=== PATIENT | female | born 1940 | race Caucasian/White ===

== ENCOUNTER 2017-07-19 23:26 | Emergency (ER) | payer MEDICARE, MEDICAID ==
[~2017-07-19] VITALS: Ht 160 cm; Wt 67.6 kg
[2017-07-19 23:26] VITALS: BP 196/84
[~2017-07-19 23:26] MED LIST: AC325T PO; ACHD5005 PO; AMIO400T5 PO; AMLO5TAB2 PO; ASP325T PO; ASP81TEC PO; ATEN100T88 PO; ATN50T; ATOR40TA70 PO; AZIT-21 PO; BENZ200C25 PO; CEFD300C3 PO; CLPD75T PO; FURO40TA4 PO; HCT25T PO; HYDR-3062 PO; LOVA40TA2 PO; LVST20T; METO100T2 PO; METO1TAB12 PO; NTR.4SL SL; PNT40TEC PO; POTA10TA36 PO; POTA20TA15 PO; PRIM50TA26 PO; SCR1T1 PO
--- OUTSIDE RECORDS SUMMARY | 2017-07-19 23:34 | XMS REPORT | Continuity of Care Document ---
Author Author [facility] Address Unknown Phone Unavailable Allergies Active Description Code Type Severity Reaction Onset Reported/Identified Relationship to Patient Clinical Status Yes No Known Drug Allergies [id number] Drug Allergy Unknown N/ A 07/01/2008 Yes Flulaval Drug Allergy N/A N/A 05/25/2014 Medications Problems Date Dx Coded Attending Type Code Diagnosis Diagnosed By CHELI THORNTON, GUILLERMO Neff Ot S42.209D CHELI THORNTON, GUILLERMO Neff Ot W19.XXXD CHELI THORNTON, GUILLERMO Neff Ot Y99.8 06/18/2008 414.01 CAD 06/18/2008 528.9 MOUTH PAIN 06/18/2008 RADHA GUERRA APRN R 414.01 CAD 06/18/2008 RADHA GUERRA APRN R 528.9 MOUTH PAIN 06/18/2008 LATHAM DO, MUNIRA K 414.01 CAD 06/18/2008 LATHAM DO, MUNIRA K 528.9 MOUTH PAIN 06/18/2008 EUGENIO TELLO APRNA S 414.01 CAD 06/18/2008 EUGENIO TELLO APRNA S 528.9 MOUTH PAIN 06/18/2008 LATHAM DO, MUNIRA K 414.01 CAD 06/18/2008 LATHAM DO, MUNRIA K 528.9 MOUTH PAIN 02/22/2010 729.5 PAIN IN LIMB 02/22/2010 RADHA GUERRA APRN R 729.5 PAIN IN LIMB 02/22/2010 LATHAM DO, MUNIRA K 729.5 PAIN IN LIMB 02/22/2010 STACEY TELLO APRN S 729.5 PAIN IN LIMB 02/22/2010 LATHAM DO, MUNIRA K 729.5 PAIN IN LIMB 04/05/2010 388.70 OTALGIA, UNSPECIFIED 04/05/2010 401.9 UNSPECIFIED ESSENTIAL HYPERTENSION 04/05/2010 RADHA GUERRA APRN R 388.70 OTALGIA, UNSPECIFIED 04/05/2010 RADHA GUERRA APRN R 401.9 UNSPECIFIED ESSENTIAL HYPERTENSION 04/05/2010 LATHAM DO, MUNIRA K 388.70 OTALGIA, UNSPECIFIED 04/05/2010 LATHAM DO, MUNIRA K 401.9 UNSPECIFIED ESSENTIAL HYPERTENSION 04/05/2010 ELISHA MCKEONBienvenido STACEY S 388.70 OTALGIA, UNSPECIFIED 04/05/2010 ELISHA TOP EDGE BEVELER STACEY S 401.9 UNSPECIFIED ESSENTIAL HYPERTENSION 04/05/2010 LATHAM DO, MUNIRA K 388.70 OTALGIA, UNSPECIFIED 04/05/2010 LATHAM DO, MUNIRA K 401.9 UNSPECIFIED ESSENTIAL HYPERTENSION 04/11/2010 780.4 DIZZINESS AND VERTIGO 04/11/2010 RADHA GUERRA APRN R 780.4 DIZZINESS AND VERTIGO 04/11/2010 LATHAM DO, MUNIRA K 780.4 DIZZINESS AND VERTIGO 04/11/2010 ELISHA TOP EDGE BEVELER, STACEY S 780.4 DIZZINESS AND VERTIGO 04/11/2010 LATHAM DO, MUNIRA K 780.4 DIZZINESS AND VERTIGO 11/12/2010 Ot 729.5 11/12/2010 Ot 789.09 04/02/2014 ISAI THORNTON [facility], ALI FACP CCDS Ot 272.4 04/02/2014 ISAI THORNTON [facility], ALI FACP CCDS Ot 403.90 04/02/2014 ISAI THORNTON [facility], ALI FACP CCDS Ot 414.01 04/02/2014 ISAI THORNTON [facility], ALI FACP CCDS Ot 414.4 04/02/2014 ISAI THORNTON [facility], ALI FACP CCDS Ot 440.20 04/02/2014 ISAI THORNTON [facility], ALI FACP CCDS Ot 585.2 04/02/2014 ISAI THORNTON [facility], ALI FACP CCDS Ot 786.09 04/02/2014 ISAI THORNTON FAC, ALI FACP CCDS Ot 786.59 04/02/2014 ISAI THORNTON FAC, ALI FACP CCDS Ot V45.82 04/02/2014 ISAI ALEGRIAC, ALI FACP CCDS Ot V58.63 04/02/2014 ISAI ALEGRIAC, ALI FACP CCDS Ot V58.69 05/18/2014 RADHA GUERRA APRN R 782.3 EDEMA 05/18/2014 GUERRA TOP EDGE BEVELER, RADHA R 786.2 COUGH 05/18/2014 LATHAM DO, MUNIRA K 782.3 EDEMA 05/18/2014 LATHAM DO, MUNIRA K 786.2 COUGH 05/18/2014 ELISHA TOP EDGE BEVELER, STACEY S 782.3 EDEMA 05/18/2014 ELISHA TOP EDGE BEVELER, STACEY S 786.2 COUGH 05/18/2014 LATHAM DO, MUNIRA K 782.3 EDEMA 05/18/2014 LATHAM DO, MUNIRA K 786.2 COUGH 05/25/2014 LATHAM DO, MUNIRA K 719.46 PAIN KNEE 05/25/2014 LATHAM DO, MUNIRA K 781.0 ABNORMAL INVOLUNTARY MOVEMENTS 05/25/2014 LATHAM DO, MUNIRA K 787.20 DYSPHAGIA UNSPECIFIED 05/25/2014 LATHAM DO, MUNIRA K V70.0 EXAM - ROUTINE H&P 05/25/2014 ELISHA TOP EDGE BEVELER STACEY S 719.46 PAIN KNEE 05/25/2014 ELISHA MCKEONN STACEY S 781.0 ABNORMAL INVOLUNTARY MOVEMENTS 05/25/2014 ELISHA TOP EDGE BEVELER, STACEY S 787.20 DYSPHAGIA UNSPECIFIED 05/25/2014 ELISHA TOP EDGE BEVELER, STACEY S V70.0 EXAM - ROUTINE H&P 05/25/2014 LATHAM DO, MUNIRA K 719.46 PAIN KNEE 05/25/2014 LATHAM DO, MUNIRA K 781.0 ABNORMAL INVOLUNTARY MOVEMENTS 05/25/2014 LATHAM DO, MUNIRA K 787.20 DYSPHAGIA UNSPECIFIED 05/25/2014 LATHAM DO, MUNIRA K V70.0 EXAM - ROUTINE H&P 07/08/2014 SHAWN THORNTON, RANDA Ot 530.11 07/08/2014 SHAWN THORNTON, RANDA Ot 535.50 07/08/2014 SHAWN THORNTON, RANDA Ot 553.3 07/20/2014 LATHAM DO, MUNIRA K 041.86 H. PYLORI INFECTION 07/20/2014 LATHAM DO, MUNIRA K 530.85 WHITE'S ESOPHAGUS 07/20/2014 ELISHA MART STACEY S 041.86 H. PYLORI INFECTION 07/20/2014 ELISHA MART STACEY S 530.85 WHITE'S ESOPHAGUS 07/20/2014 LATHAM DO, MUNIRA K 041.86 H. PYLORI INFECTION 07/20/2014 MUNIRA LATHAM DO 530.85 WHITE'S ESOPHAGUS 09/18/2014 MANINDER LEYVA MD Ot 465.9 09/18/2014 MANINDER LEYVA MD Ot 729.81 09/18/2014 MANINDER LEYVA MD Ot 786.2 09/18/2014 MANINDER LEYVA MD Ot V58.69 09/23/2014 NOA COATES MUNIRA Godinez 465.9 UPPER RESPIRATORY INFECTION 11/12/2014 ISAI THORNTON FACC, ALI FACP CCDS Ot 414.00 11/12/2014 ISAI THORNTON FACC, ALI FACP CCDS Ot 428.31 11/12/2014 ISAI THORNTON FACC, ALI FACP CCDS Ot 443.9 11/12/2014 ISAI THORNTON FACC, ALI FACP CCDS Ot 458.9 11/12/2014 ISAI THORNTON FACC, ALI FACP CCDS Ot 585.9 11/12/2014 ISAI THORTNON FACC, ALI FACP CCDS Ot 781.0 12/02/2014 ISAI THORNTON FACC, ALI FACP CCDS Ot 414.00 12/02/2014 ISAI THORNTON FACC, ALI FACP CCDS Ot 428.31 12/02/2014 ISAI THORNTON FACC, ALI FACP CCDS Ot 443.9 12/02/2014 ISAI THORNTON FACC, ALI FACP CCDS Ot 458.9 12/02/2014 ISAI THORNTON FACC, ALI FACP CCDS Ot 585.9 12/02/2014 ISAI ALEGRIAC, ALI FACP CCDS Ot 781.0 12/17/2014 Ot 272.4 12/17/2014 Ot 401.9 12/17/2014 Ot 414.00 12/17/2014 Ot 490 12/17/2014 Ot 786.05 12/17/2014 Ot V45.81 12/17/2014 Ot V58.69 12/21/2014 ISAI THORNTON FACC, ALI FACP CCDS Ot 414.00 12/21/2014 ISAI THORNTON FACC, ALI FACP CCDS Ot 428.31 12/21/2014 ISAI THORNTON FACC, ALI FACP CCDS Ot 443.9 12/21/2014 ISAI THORNTON FACC, ALI FACP CCDS Ot 458.9 12/21/2014 ISAI THORNTON FACC, ALI FACP CCDS Ot 585.9 12/21/2014 ISAI THORNTON FACC, ALI FACP CCDS Ot 781.0 08/09/2015 Ot 272.4 08/09/2015 Ot 414.01 08/09/2015 Ot V58.69 08/09/2015 Ot 272.4 08/09/2015 Ot 401.9 08/09/2015 Ot 414.01 08/09/2015 Ot V58.69 08/09/2015 Ot 272.4 08/09/2015 Ot 414.00 08/09/2015 Ot V58.69 08/09/2015 Ot 272.4 08/09/2015 Ot 414.00 08/09/2015 Ot V58.69 08/09/2015 Ot 276.8 08/09/2015 Ot 401.9 08/09/2015 Ot V58.69 08/09/2015 Ot 414.00 08/09/2015 Ot 786.09 08/09/2015 Ot 786.50 08/09/2015 Ot 272.4 08/09/2015 Ot 414.00 08/09/2015 Ot V58.69 08/09/2015 Ot 276.8 08/09/2015 Ot 401.9 08/09/2015 Ot 276.8 08/09/2015 Ot 401.9 08/09/2015 Ot V58.69 08/09/2015 Ot 272.4 08/09/2015 Ot 401.9 08/09/2015 Ot 414.01 08/09/2015 Ot V58.69 08/09/2015 Ot 401.9 08/09/2015 Ot 414.00 08/09/2015 Ot 786.50 08/09/2015 Ot 272.4 08/09/2015 Ot 414.00 08/09/2015 MAXIME LOZADA L HOCKEY SCOUT Ot 272.4 08/09/2015 BAIMA MAXIME L HOCKEY SCOUT Ot 414.00 08/09/2015 BAIMA MAXIME L HOCKEY SCOUT Ot 440.1 08/09/2015 BAIMA MAXIME L HOCKEY SCOUT Ot 443.9 08/09/2015 ISAI THORNTON FACC, ALI FACP CCDS Ot V72.63 08/09/2015 ISAI THORNTON FACC, ALI FACP CCDS Ot V72.81 08/09/2015 ISAI THORNTON FACC, ALI FACP CCDS Ot V72.84 08/09/2015 BYRONROSALINA NUNEZ APRN Ot 276.8 08/09/2015 CHETAN THORNTON, NAN Ot V45.81 08/09/2015 CHETAN THORNTON, NAN Ot V58.73 08/09/2015 ISAI THORNTON FACC, ALI FACP CCDS Ot 272.4 08/09/2015 ISAI MD FACC, ALI FACP CCDS Ot 410.00 08/09/2015 ISAI THORNTON FACC, ALI FACP CCDS Ot 428.0 08/09/2015 ISAI MD FACC, ALI FACP CCDS Ot 428.30 08/09/2015 ISAI MD FACC, ALI FACP CCDS Ot 443.9 08/09/2015 ISAI THORNTON FACC, ALI FACP CCDS Ot 787.20 08/09/2015 ISAI THORNTON FACC, ALI FACP CCDS Ot 793.4 08/09/2015 RANDA CORDON MD Ot V72.84 08/09/2015 ISAI THORNTON FACC, ALI FACP CCDS Ot 140.0 08/09/2015 ISAI THORNTON FACC, ALI FACP CCDS Ot 272.4 08/09/2015 ISAI THORNTON FACC, ALI FACP CCDS Ot 283.0 08/09/2015 ISAI THORNTON FACC, ALI FACP CCDS Ot 403.90 08/09/2015 ISAI THORNTON FACC, ALI FACP CCDS Ot 428.0 08/09/2015 ISAI THORNTON FACC, ALI FACP CCDS Ot 443.9 08/09/2015 ISAI THORNTON FACC, ALI FACP CCDS Ot 585.9 08/09/2015 ISAI THORNTON FACC, ALI FACP CCDS Ot 781.0 08/09/2015 ISAI THORNTON FACC, ALI FACP CCDS Ot 414.00 08/09/2015 ISAI THORNTON FACC, ALI FACP CCDS Ot 428.31 08/09/2015 ISAI THORNTON FACC, ALI FACP CCDS Ot 443.9 08/09/2015 ISAI MD FACC, ALI FACP CCDS Ot 458.9 08/09/2015 ISAI THORNTON FACC, ALI FACP CCDS Ot 585.9 08/09/2015 ISAI THORNTON FACC, ALI FACP CCDS Ot 781.0 08/10/2015 Ot 272.4 08/10/2015 Ot 414.01 08/10/2015 Ot V58.69 08/10/2015 Ot 272.4 08/10/2015 Ot 401.9 08/10/2015 Ot 414.01 08/10/2015 Ot V58.69 08/10/2015 Ot 272.4 08/10/2015 Ot 414.00 08/10/2015 Ot V58.69 08/10/2015 Ot 272.4 08/10/2015 Ot 414.00 08/10/2015 Ot V58.69 08/10/2015 Ot 276.8 08/10/2015 Ot 401.9 08/10/2015 Ot V58.69 08/10/2015 Ot 414.00 08/10/2015 Ot 786.09 08/10/2015 Ot 786.50 08/10/2015 Ot 272.4 08/10/2015 Ot 414.00 08/10/2015 Ot V58.69 08/10/2015 Ot 276.8 08/10/2015 Ot 401.9 08/10/2015 Ot 276.8 08/10/2015 Ot 401.9 08/10/2015 Ot V58.69 08/10/2015 Ot 272.4 08/10/2015 Ot 401.9 08/10/2015 Ot 414.01 08/10/2015 Ot V58.69 08/10/2015 Ot 401.9 08/10/2015 Ot 414.00 08/10/2015 Ot 786.50 08/10/2015 Ot 272.4 08/10/2015 Ot 414.00 08/10/2015 BAIMA MAXIME L HOCKEY SCOUT Ot 272.4 08/10/2015 BAIMA, MAXIME L HOCKEY SCOUT Ot 414.00 08/10/2015 BAIMA, MAXIME L HOCKEY SCOUT Ot 440.1 08/10/2015 BAIMA, MAXIME L HOCKEY SCOUT Ot 443.9 08/10/2015 ISAI THORNTON FACC, ALI FACP CCDS Ot V72.63 08/10/2015 ISAI THORNTON FACC, ALI FACP CCDS Ot V72.81 08/10/2015 ISAI THORNTON FACC, ALI FACP CCDS Ot V72.84 08/10/2015 ROSALINA COLLINS APRN Ot 276.8 08/10/2015 NAN BENTON MD Ot V45.81 08/10/2015 CHETAN THORNTON, NAN Ot V58.73 08/10/2015 ISAI MD FACC, ALI FACP CCDS Ot 272.4 08/10/2015 ISAI MD FACC, ALI FACP CCDS Ot 410.00 08/10/2015 ISAI MD FACC, ALI FACP CCDS Ot 428.0 08/10/2015 ISAI FACC, ALI FACP CCDS Ot 428.30 08/10/2015 ISAI MD FACC, ALI FACP CCDS Ot 443.9 08/10/2015 ISAI FACC, ALI FACP CCDS Ot 787.20 08/10/2015 ISAI FAC, ALI FACP CCDS Ot 793.4 08/10/2015 SHAWN THORNTON, RANDA Ot V72.84 08/10/2015 ISAI MD FACC, ALI FACP CCDS Ot 140.0 08/10/2015 ISAI MD FACC, ALI FACP CCDS Ot 272.4 08/10/2015 ISAI MD FACC, ALI FACP CCDS Ot 283.0 08/10/2015 ISAI MD FACC, ALI FACP CCDS Ot 403.90 08/10/2015 ISAI MD FACC, ALI FACP CCDS Ot 428.0 08/10/2015 ISAI MD FACC, ALI FACP CCDS Ot 443.9 08/10/2015 ISAI MD FACC, ALI FACP CCDS Ot 585.9 08/10/2015 ISAI MD FACC, ALI FACP CCDS Ot 781.0 08/10/2015 ISAI MD FACC, ALI FACP CCDS Ot 414.00 08/10/2015 ISAI MD FACC, ALI FACP CCDS Ot 428.31 08/10/2015 ISAI MD FACC, ALI FACP CCDS Ot 443.9 08/10/2015 ISAI MD FACC, ALI FACP CCDS Ot 458.9 08/10/2015 ISAI MD FACC, ALI FACP CCDS Ot 585.9 08/10/2015 ISAI MD FACC, ALI FACP CCDS Ot 781.0 09/01/2015 FREDY GATES DO Ot 812.02 09/01/2015 FREDY GATES DO Ot 959.3 09/01/2015 GELLENDER DO, FREDY Starkey Ot E000.8 09/01/2015 GELLENDER DO, FREDY Starkey Ot E849.0 09/01/2015 GELLENDER DO, FREDY Starkey Ot E888.9 09/08/2015 GELLENDER DO, FREDY Starkey Ot 812.02 09/08/2015 GELLENDER DO, FREDY Starkey Ot 959.3 09/08/2015 GELLENDER DO, FREDY Starkey Ot E000.8 09/08/2015 GELLENDER DO, FREDY Starkey Ot E849.0 09/08/2015 GELLENDER DO, FREDY Starkey Ot E888.9 09/14/2015 Ot 272.4 09/14/2015 Ot 414.01 09/14/2015 Ot V58.69 09/14/2015 Ot 272.4 09/14/2015 Ot 401.9 09/14/2015 Ot 414.01 09/14/2015 Ot V58.69 09/14/2015 Ot 272.4 09/14/2015 Ot 414.00 09/14/2015 Ot V58.69 09/14/2015 Ot 272.4 09/14/2015 Ot 414.00 09/14/2015 Ot V58.69 09/14/2015 Ot 276.8 09/14/2015 Ot 401.9 09/14/2015 Ot V58.69 09/14/2015 Ot 414.00 09/14/2015 Ot 786.09 09/14/2015 Ot 786.50 09/14/2015 Ot 272.4 09/14/2015 Ot 414.00 09/14/2015 Ot V58.69 09/14/2015 Ot 276.8 09/14/2015 Ot 401.9 09/14/2015 Ot 276.8 09/14/2015 Ot 401.9 09/14/2015 Ot V58.69 09/14/2015 Ot 272.4 09/14/2015 Ot 401.9 09/14/2015 Ot 414.01 09/14/2015 Ot V58.69 09/14/2015 Ot 401.9 09/14/2015 Ot 414.00 09/14/2015 Ot 786.50 09/14/2015 Ot 272.4 09/14/2015 Ot 414.00 09/14/2015 MAXIME LOZADA HOCKEY SCOUT Ot 272.4 09/14/2015 MAXIME LOZADA HOCKEY SCOUT Ot 414.00 09/14/2015 MAXIME LOZAAD HOCKEY SCOUT Ot 440.1 09/14/2015 MAXIME LOZADA HOCKEY SCOUT Ot 443.9 09/14/2015 ISAI THORNTON FACC, ALI FACP CCDS Ot V72.63 09/14/2015 ISAI THORNTON FACC, ALI FACP CCDS Ot V72.81 09/14/2015 ISAI THORNTON FACC, ALI FACP CCDS Ot V72.84 09/14/2015 ROSALINA COLLINS APRN Ot 276.8 09/14/2015 CHETAN THORNTON, NAN Ot V45.81 09/14/2015 CHETAN THORNTON, NAN Ot V58.73 09/14/2015 ISAI THORNTON FACC, ALI FACP CCDS Ot 272.4 09/14/2015 ISAI THORNTON FACC, ALI FACP CCDS Ot 410.00 09/14/2015 ISAI THORNTON FACC, ALI FACP CCDS Ot 428.0 09/14/2015 ISAI THORNTON FACC, ALI FACP CCDS Ot 428.30 09/14/2015 ISAI THORNTON FACC, ALI FACP CCDS Ot 443.9 09/14/2015 ISAI THORNTON FACC, ALI FACP CCDS Ot 787.20 09/14/2015 ISAI THORNTON FACC, ALI FACP CCDS Ot 793.4 09/14/2015 RANDA CORDON MD Ot V72.84 09/14/2015 ISAI THORNTON FACC, ALI FACP CCDS Ot 140.0 09/14/2015 ISAI THORNTON FACC, ALI FACP CCDS Ot 272.4 09/14/2015 ISAI THORNTON FACC, ALI FACP CCDS Ot 283.0 09/14/2015 ISAI THORNTON FACC, ALI FACP CCDS Ot 403.90 09/14/2015 ISAI THORNTON FACC, ALI FACP CCDS Ot 428.0 09/14/2015 ISAI THORNTON FACC, ALI FACP CCDS Ot 443.9 09/14/2015 ISAI THORNTON FACC, ALI FACP CCDS Ot 585.9 09/14/2015 ISAI THORNTON FACC, ALI FACP CCDS Ot 781.0 09/14/2015 ISAI THORNTON FACC, ALI FACP CCDS Ot 414.00 09/14/2015 ISAI THORNTON FACC, ALI FACP CCDS Ot 428.31 09/14/2015 ISAI THORNTON FAC, ALI FACP CCDS Ot 443.9 09/14/2015 ISAI THORNTON FAC, ALI FACP CCDS Ot 458.9 09/14/2015 ISAI THORNTON FAC, ALI FACP CCDS Ot 585.9 09/14/2015 ISAI THORNTON FAC, ALI FACP CCDS Ot 781.0 09/14/2015 GELLENDER DO, FREDY A Ot 812.02 09/14/2015 GELLENDER DO, FREDY A Ot 959.3 09/14/2015 GELLENDER DO, FREDY A Ot E000.8 09/14/2015 GELLENDER DO, FREDY A Ot E849.0 09/14/2015 GELLENDER DO, FREDY A Ot E888.9 09/14/2015 GELLENDER DO, FREDY A Ot 784.0 09/14/2015 GELLENDER DO, FREDY A Ot E000.8 09/14/2015 GELLENDER DO, FREDY A Ot E888.9 09/23/2015 CHELI THORNTON, GUILLERMO P Ot S42.209D 09/23/2015 CHELI THORNTON, GUILLERMO P Ot W19.XXXD 09/23/2015 CHELI THORNTON, GUILLERMO P Ot Y99.8 10/05/2015 CHELI THORNTON, GUILLERMO P Ot S42.209D 10/05/2015 CHELI THORNTON, GUILLERMO P Ot W19.XXXD 10/05/2015 CHELI THORNTON, GUILLERMO P Ot Y99.8 10/29/2015 PHYLLIS THORNTON, SREEKANTH T Ot F17.210 10/29/2015 PHYLLIS THORNTON, SREEKANTH T Ot R29.6 10/29/2015 PHYLLIS THORNTON, SREEKANTH T Ot S60.222A 10/29/2015 PHYLLIS THORNTON, SREEKANTH T Ot S70.912A 10/29/2015 PHYLLIS THORNTON, SREEKANTH T Ot S79.912A 10/29/2015 PHYLLIS THORNTON, SREEKANTH T Ot W01.0XXA 10/29/2015 PHYLLIS THORNTON, SREEKANTH T Ot Y92.019 10/29/2015 PHYLLIS THORNTON, SREEKANTH T Ot Y99.8 10/29/2015 PHYLLIS THORNTON, SREEKANTH T Ot Z79.02 10/29/2015 PHYLLIS THORNTON, SREEKANTH T Ot Z79.82 10/29/2015 PHYLLIS THORNTON, SREEKANTH T Ot Z79.899 02/21/2016 Ot 272.4 02/21/2016 Ot 414.01 02/21/2016 Ot V58.69 02/21/2016 Ot 272.4 02/21/2016 Ot 401.9 02/21/2016 Ot 414.01 02/21/2016 Ot V58.69 02/21/2016 Ot 272.4 02/21/2016 Ot 414.00 02/21/2016 Ot V58.69 02/21/2016 Ot 272.4 02/21/2016 Ot 414.00 02/21/2016 Ot V58.69 02/21/2016 Ot 276.8 02/21/2016 Ot 401.9 02/21/2016 Ot V58.69 02/21/2016 Ot 414.00 02/21/2016 Ot 786.09 02/21/2016 Ot 786.50 02/21/2016 Ot 272.4 02/21/2016 Ot 414.00 02/21/2016 Ot V58.69 02/21/2016 Ot 276.8 02/21/2016 Ot 401.9 02/21/2016 Ot 276.8 02/21/2016 Ot 401.9 02/21/2016 Ot V58.69 02/21/2016 Ot 272.4 02/21/2016 Ot 401.9 02/21/2016 Ot 414.01 02/21/2016 Ot V58.69 02/21/2016 Ot 401.9 02/21/2016 Ot 414.00 02/21/2016 Ot 786.50 02/21/2016 Ot 272.4 02/21/2016 Ot 414.00 02/21/2016 MAXIME LOZADA L HOCKEY SCOUT Ot 272.4 02/21/2016 MAXIME LOZADA L HOCKEY SCOUT Ot 414.00 02/21/2016 BAIPAMELA MCGILLHER L HOCKEY SCOUT Ot 440.1 02/21/2016 MAXIME LOZADA L HOCKEY SCOUT Ot 443.9 02/21/2016 ISAI THORNTON FACC, MYLES FACP CCDS Ot V72.63 02/21/2016 ISAI THORNTON FACWill, ALI FACP CCDS Ot V72.81 02/21/2016 ISAI MD FACC, ALI FACP CCDS Ot V72.84 02/21/2016 DENNIS ROSALINAUZIEL Godinez APRN Ot 276.8 02/21/2016 CHETAN THORNTON, NAN Ot V45.81 02/21/2016 CHETAN THORNTON, NAN Ot V58.73 02/21/2016 ISAI MD FACC, ALI FACP CCDS Ot 272.4 02/21/2016 ISAI MD FACC, ALI FACP CCDS Ot 410.00 02/21/2016 ISAI MD FACC, ALI FACP CCDS Ot 428.0 02/21/2016 ISAI MD FACC, ALI FACP CCDS Ot 428.30 02/21/2016 ISAI MD FACC, ALI FACP CCDS Ot 443.9 02/21/2016 ISAI MD FACC, ALI FACP CCDS Ot 787.20 02/21/2016 ISAI MD FACC, ALI FACP CCDS Ot 793.4 02/21/2016 RANDA CORDON MD Ot V72.84 02/21/2016 ISAI MD FACC, ALI FACP CCDS Ot 140.0 02/21/2016 ISAI MD FACC, ALI FACP CCDS Ot 272.4 02/21/2016 ISAI THORNTON FACC, ALI FACP CCDS Ot 283.0 02/21/2016 ISAI MD FACC, ALI FACP CCDS Ot 403.90 02/21/2016 ISAI MD FACC, ALI FACP CCDS Ot 428.0 02/21/2016 ISAI THORNTON FACC, ALI FACP CCDS Ot 443.9 02/21/2016 ISAI MD FACC, ALI FACP CCDS Ot 585.9 02/21/2016 ISAI MD FACC, ALI FACP CCDS Ot 781.0 02/21/2016 ISAI MD FACC, ALI FACP CCDS Ot 414.00 02/21/2016 ISAI MD FACC, ALI FACP CCDS Ot 428.31 02/21/2016 ISAI MD FACC, ALI FACP CCDS Ot 443.9 02/21/2016 ISAI MD FACC, ALI FACP CCDS Ot 458.9 02/21/2016 ISAI MD FACC, ALI FACP CCDS Ot 585.9 02/21/2016 ISAI THORNTON [facility] CCDS Ot 781.0 02/21/2016 GELLENDER DO, FREDY Starkey Ot 812.02 02/21/2016 GELLENDER DO, FREDY Starkey Ot 959.3 02/21/2016 GELLENDER DO, FREDY Starkey Ot E000.8 02/21/2016 GELLENDER DO, FREDY Starkey Ot E849.0 02/21/2016 GELLENDER DO, FREDY Starkey Ot E888.9 02/21/2016 GELLENDER DO, FREDY Starkey Ot 784.0 02/21/2016 GELLENDER DO, FREDY Starkey Ot E000.8 02/21/2016 GELLENDER DO, FREDY Starkey Ot E888.9 02/22/2016 BAIMA, MAXIME L HOCKEY SCOUT Ot E78.5 02/22/2016 BAIMA, MAXIME L HOCKEY SCOUT Ot I10 02/22/2016 BAIMA, MAXIME L HOCKEY SCOUT Ot I25.10 02/22/2016 BAIMA, MAXIME L HOCKEY SCOUT Ot I50.31 03/15/2016 BAIMA, MAXIME L HOCKEY SCOUT Ot E78.5 HYPERLIPIDEMIA, UNSPECIFIED 03/15/2016 BAIMA, MAXIME L HOCKEY SCOUT Ot I10 ESSENTIAL (PRIMARY) HYPERTENSION 03/15/2016 BAIMA, MAXIME L HOCKEY SCOUT Ot I25.10 ATHSCL HEART DISEASE [place] CORONARY 03/15/2016 BAIMA, MAXIME L HOCKEY SCOUT Ot I50.31 ACUTE DIASTOLIC (CONGESTIVE) HEART FAILU 03/16/2016 BAIMA, MAXIME L HOCKEY SCOUT Ot E78.5 HYPERLIPIDEMIA, UNSPECIFIED 03/16/2016 BAIMA, MAXIME L HOCKEY SCOUT Ot I10 ESSENTIAL (PRIMARY) HYPERTENSION 03/16/2016 BAIMA, MAXIME L HOCKEY SCOUT Ot I25.10 ATHSCL HEART DISEASE OF [place] CORONARY 03/16/2016 BAIMA, MAXIME L HOCKEY SCOUT Ot I50.31 ACUTE DIASTOLIC (CONGESTIVE) HEART FAILU 03/30/2016 BAIMA, MAXIME L HOCKEY SCOUT Ot E78.5 HYPERLIPIDEMIA, UNSPECIFIED 03/30/2016 BAIMA, MAXIME L HOCKEY SCOUT Ot I10 ESSENTIAL (PRIMARY) HYPERTENSION 03/30/2016 BAIMA, MAXIME L HOCKEY SCOUT Ot I25.10 ATHSCL HEART DISEASE [place] CORONARY 03/30/2016 BAIMA, MAXIME L HOCKEY SCOUT Ot I50.31 ACUTE DIASTOLIC (CONGESTIVE) HEART FAILU 03/30/2016 MAXIME LOZADA HOCKEY SCOUT Ot E78.5 HYPERLIPIDEMIA, UNSPECIFIED 03/30/2016 MAXIME LOZADA HOCKEY SCOUT Ot I10 ESSENTIAL (PRIMARY) HYPERTENSION 03/30/2016 MAXIME LOZADA HOCKEY SCOUT Ot I25.10 ATHSCL HEART DISEASE [place] CORONARY 03/30/2016 MAXIME LOZADAP Ot I50.31 ACUTE DIASTOLIC (CONGESTIVE) HEART FAILU Procedures Code Description [place] [address] ROUTINE VENIPUNCTURE 05/18/2014 General S Praneeth Cordon 85502 XRAY CHEST 2 VIEW 05/18/2014 93068 BNP 05/18/2014 74978 OXIMETRY 2013 Results Encounters ACCT No. Visit Date/Time Discharge Status Pt. Type Provider Facility Loc./Unit Complaint [id number] 09/23/2014 10:55:00 09/23/2014 23: 59:59 CLS Outpatient MUNIRA LATHAM DO [id number] 08/17/2014 09:13:00 08/17/2014 23: 59:59 CLS Outpatient STACEY TELLO APRN [id number] 05/18/2014 12:54:00 05/18/2014 23: 59:59 CLS Outpatient MUNIRA LATHAM DO [id number] 05/18/2014 12:54:00 05/18/2014 23: 59:59 CLS Outpatient RADHA GUERRA APRN [id number] 06/23/2010 10:09:00 06/23/2010 23: 59:59 CLS Outpatient [id number] 02/23/2016 13:23:00 2015 23:59:59 CLS Outpatient MAXIME LOZADA HOCKEY SCOUT [facility] CARD [id number] 02/21/2016 07:27:00 2015 23:59:59 CLS Outpatient MAXIME LOZADA HOCKEY SCOUT [facility] LAB [id number] 10/28/2015 21:51:00 2014 01:23:00 DIS Emergency PHYLLIS THORNTON, SREEKANTH Luu [facility] ER [id number] 09/30/2015 08:22:00 2014 09:51:00 DIS Outpatient GUILLERMO BOWER MD [facility] REHAB [id number] 08/10/2015 10:35:00 2014 23:59:59 CLS Outpatient FREDY GATES DO [facility] RAD [id number] 08/09/2015 11:48:00 2014 23:59:59 CLS Outpatient FREDY GATES DO [facility] RAD [id number] 11/10/2014 06:24:00 2013 23:59:59 CLS Outpatient ISAI THORNTON FACC, ALI FACP CCDS [facility] LAB [id number] 09/18/2014 09:45:00 2013 13:51:00 DIS Emergency MANINDER LEYVA MD [facility] ER [id number] 07/16/2014 06:15:00 2013 23:59:59 CLS Outpatient ISAI THORNTON FACWill, ALI FACP CCDS [facility] LAB [id number] 07/08/2014 08:14:00 2013 11:45:00 DIS Outpatient RANDA CORDON MD [facility] [id number] 07/01/2014 07:24:00 2013 23:59:59 CLS Outpatient RANDA CORDON MD [facility] PREOP [id number] 05/26/2014 09:47:00 2013 23:59:59 CLS Outpatient ISAI THORNTON FACWill, ALI FACP CCDS [facility] RAD [id number] 04/27/2014 14:15:00 2013 23:59:59 CLS Outpatient NAN BENTON MD [facility] [id number] 04/13/2014 10:09:00 2013 23:59:59 CLS Outpatient ROSALINA COLLINS APRN [facility] LAB [id number] 04/02/2014 07:48:00 2013 18:50:00 DIS Outpatient ISAI THORNTON FACWill, ALI FACP CCDS [facility] [id number] 04/01/2014 08:05:00 2013 23:59:59 CLS Outpatient MYLES ALEX MD, FACC, FACP CCDS [facility] PREOP [id number] 09/24/2013 05:51:00 2012 23:59:59 CLS Outpatient ARABELLANANO MAXIME Kieran IBARRA [facility] LAB [id number] 08/09/2015 11:47:00 Document Registration [id number] 08/09/2015 11:47:00 Document Registration [id number] 12/17/2014 03:54:00 Document Registration [id number] 09/18/2012 05:43:00 Document Registration [id number] 08/29/2012 07:15:00 Document Registration [id number] 01/04/2012 05:44:00 Document Registration [id number] 10/16/2011 06:12:00 Document Registration [id number] 10/04/2011 05:50:00 Document Registration [id number] 09/28/2011 09:42:00 Document Registration [id number] 09/27/2011 06:15:00 Document Registration [id number] 07/05/2011 06:15:00 Document Registration [id number] 03/16/2011 05:50:00 Document Registration [id number] 02/02/2011 07:36:00 Document Registration [id number] 11/12/2010 14:00:00 Document Registration [id number] 11/08/2010 05:57:00 Document Registration
--- NOTE | 2017-07-19 23:41 | ED Fall/Injury ---
General Stated Complaint: FALL,RT HIP PAIN Source: patient, EMS Exam Limitations: no limitations History of Present Illness Time seen by provider: 23:34 Initial Comments Patient has ER by EMS with a chief complaint of a fall while trying to get off the toilet going to the bathroom. She says she's started getting a little dizzy. This happens before. She said she sat down and she fell and landed her right hip on the wheel of her walker. EMS reports the walkers we'll was quite bent and the patient had some deformity to her right hip. She is having quite a bit of pain and required 50 g of fentanyl en route. Patient's blood pressure was elevated 180s over 90s. Patient reports she also has Parkinson's and is on Plavix and aspirin. She did not hit her head nor did she lose consciousness. Allergies and Home Medications Allergies Coded Allergies: No Known Drug Allergies (Verified , 07/01/08) Home Medications Amiodarone Hcl 400 Mg Tablet, 400 MG PO DAILY, (Reported) Aspirin 81 Mg Tabec, 81 MG PO DAILY, #30 Prescribed by: SKYE JENKINS on 04/02/14 1811 Atorvastatin Calcium 40 Mg Tablet, 40 MG PO DAILY, (Reported) Azithromycin 250 Mg Tab, 2 TAB PO DAILY, #10 Prescribed by: LEDA RICKS on 12/17/14 0501 Benzonatate 200 Mg Capsule, 1 EACH PO TID PRN for COUGH, #30 Prescribed by: MANINDER LEYVA on 09/18/14 1339 Benzonatate 200 Mg Capsule, 1 EACH PO TID PRN for COUGH, #30 Prescribed by: LEDA RICKS on 12/17/14 0501 Cefdinir 300 Mg Capsule, 1 EACH PO BID, #20 Prescribed by: LEDA RICKS on 12/17/14 0501 Clopidogrel 75 Mg Tablet, 75 MG PO DAILY, (Reported) Furosemide 40 Mg Tablet, 40 MG PO DAILY, #90 (Reported) Hctz/Metoprolol 1 Each Tablet, 1 EACH PO DAILY, (Reported) Nitroglycerin 0.4 Mg Subl, 0.4 MG SL PRN, (Reported) Pantoprazole Sodium 40 Mg Tablet.dr, 1 TAB PO DAILY, #90 Ref 5 Prescribed by: RANDA ESCOBAR on 07/08/14 1041 Potassium Chloride 10 Meq Tab.prt.sr, 10 MEQ PO DAILY, #30 (Reported) Primidone 50 Mg Tablet, 50 MG PO HS, (Reported) Constitutional: No chills, No diaphoresis Eyes: Denies Blurred Vision, Denies Pain, Denies Photophobia Ears, Nose, Mouth, Throat: denies ear pain, denies ear discharge Respiratory: No cough, No short of breath Cardiovascular: No chest pain, No palpitations Gastrointestinal: No abdominal pain, No constipation, No diarrhea, No nausea, No vomiting Genitourinary: No discharge, No dysuria Musculoskeletal: No back pain, joint pain (right hip) Skin: No pruritus, No rash Psychiatric/Neurological: Denies Headache, Denies Numbness, Denies Paresthesia Past Rsgorkv-Cpasox-Spwixa Hx Patient Social History Alcohol Use: Denies Use Recreational Drug Use: No Smoking Status: Smoker Current Status [facility]N Immunizations Up To Date Tetanus Booster (TDap): More than 5yrs Date of Pneumonia Vaccine: April 07, 2014 Seasonal Allergies Seasonal Allergies: Yes Surgeries Surgeries: CABG, Coronary Stent, Hysterectomy, Renal Cardiovascular Cardiac Disorders: Coronary Artery Disease, Heart Attack, High Cholesterol, Hypertension Reproductive System Hx Reproductive Disorders: No Sexually Transmitted Disease: No HIV/AIDS: No COMMUNICATION SPEC History: Hysterectomy Musculoskeletal Musculoskeletal Disorders: Arthritis Psychosocial Behavioral Health Disorders: Depression Physical Exam Vital Signs Vital Sign - Last 12Hours 07/19/17 23:26 Temp 96.9 Pulse 66 Resp 20 B/P (MAP) 196/84 Pulse Ox 94 O2 Delivery Room Air Capillary Refill : General Appearance: WD/WN, mild distress HEENT: PERRL/EOMI, pharynx normal Neck: non-tender, normal inspection Cardiovascular: normal peripheral pulses, regular rate, rhythm Respiratory: chest non-tender, lungs clear, normal breath sounds Peripheral Pulses: 2+ Radial Pulses (R), 2+ Radial Pulses (L) Gastrointestinal: normal bowel sounds, non tender, soft Back: normal inspection, no vertebral tenderness Extremities: no pedal edema, no calf tenderness, normal capillary refill, swelling (right hip), other (mild tenderness right hip and right anterior knee) Neurologic/Psychiatric: alert, normal mood/affect, oriented x 3 Skin: normal color, warm/dry Melonie Coma Score Best Eye Response: (4) Open Spontaneously Best Verbal Response: (5) Oriented Best Motor Response: (6) Obeys Commands Melonie Total: 15 Progress/Results/Core Measures Results/Orders Lab Results Laboratory Tests Test 07/19/17 23:00 07/20/17 01:38 Range/Units White Blood Count 7.1 4.3-11.0 10^3/uL Red Blood Count 4.13 L 4.35-5.85 10^6/uL Hemoglobin 10.7 L 11.5-16.0 G/DL Hematocrit 35 35-52 % Mean Corpuscular Volume 85 80-99 FL Mean Corpuscular Hemoglobin 26 25-34 PG Mean Corpuscular Hemoglobin Concent 31 L 32-36 G/DL Red Cell Distribution Width 14.3 10.0-14.5 % Platelet Count 244 130-400 10^3/uL Mean Platelet Volume 11.3 H 7.4-10.4 FL Neutrophils (%) (Auto) 62 42-75 % Lymphocytes (%) (Auto) 22 12-44 % Monocytes (%) (Auto) 8 0-12 % Eosinophils (%) (Auto) 7 0-10 % Basophils (%) (Auto) 1 0-10 % Neutrophils # (Auto) 4.4 1.8-7.8 X 10^3 Lymphocytes # (Auto) 1.6 1.0-4.0 X 10^3 Monocytes # (Auto) 0.6 0.0-1.0 X 10^3 Eosinophils # (Auto) 0.5 H 0.0-0.3 10^3/uL Basophils # (Auto) 0.1 0.0-0.1 10^3/uL Sodium Level 145 135-145 MMOL/L Potassium Level 3.7 3.6-5.0 MMOL/L Chloride Level 109 H 98-107 MMOL/L Carbon Dioxide Level 24 21-32 MMOL/L Anion Gap 12 5-14 MMOL/L Blood Urea Nitrogen 24 H 7-18 MG/DL Creatinine 1.28 0.60-1.30 MG/DL Estimat Glomerular Filtration Rate 41 BUN/Creatinine Ratio 19 Glucose Level 125 H 70-105 MG/DL Calcium Level 8.8 8.5-10.1 MG/DL Magnesium Level 2.0 1.8-2.4 MG/DL Total Bilirubin 1.1 H 0.1-1.0 MG/DL Aspartate Amino Transf (AST/SGOT) 20 5-34 U/L Alanine Aminotransferase (ALT/SGPT) < 6 0-55 U/L Alkaline Phosphatase 88 40-136 U/L Total Protein 6.5 6.4-8.2 GM/DL Albumin 3.5 3.2-4.5 GM/DL Urine Color YELLOW Urine Clarity CLEAR Urine pH 6 5-9 Urine Specific [place] 1.020 1.016-1.022 Urine Protein 3+ H NEGATIVE Urine Glucose (UA) NEGATIVE NEGATIVE Urine Ketones 1+ H NEGATIVE Urine Nitrite NEGATIVE NEGATIVE Urine Bilirubin NEGATIVE NEGATIVE Urine Urobilinogen NORMAL NORMAL MG/DL Urine Leukocyte Esterase NEGATIVE NEGATIVE Urine RBC (Auto) NEGATIVE NEGATIVE Urine RBC NONE /HPF Urine WBC NONE /HPF Urine Squamous Epithelial Cells 5-10 /HPF Urine Crystals NONE /LPF Urine Bacteria NEGATIVE /HPF Urine Casts NONE /LPF Urine Mucus NEGATIVE /LPF Urine Culture Indicated NO My Orders Orders - MURALI JORDAN Cbc With Automated Diff (07/19/17 23:41) Comprehensive Metabolic Panel (07/19/17 23:41) Magnesium (07/19/17 23:41) Ua Culture If Indicated (07/19/17 23:41) Knee, Right, 3 Views (07/20/17 00:02) Hip, Right, 2 Views (07/20/17 00:02) Ondansetron Injection (Zofran Injectio (07/20/17 02:00) Medications Given in ED Current Medications Medications Dose Ordered Sig/Nabila Route Start Time Stop Time Status Last Admin Dose Admin Ondansetron HCl 4 mg ONCE ONCE IVP 07/20/17 02:00 07/20/17 02:01 DC 07/20/17 02:02 4 MG Vital Signs/I&O Vital Sign - Last 12Hours 07/19/17 23:26 Temp 96.9 Pulse 66 Resp 20 B/P (MAP) 196/84 Pulse Ox 94 O2 Delivery Room Air Diagnostic Imaging Diagonstic Imaging: Xray Plain Films/CT/US/NM/MRI: knee (right) Comments Chronic degenerative changes. No acute osseous abnormality. Reviewed: Reviewed by Me Diagonstic Imaging: Xray Plain Films/CT/US/NM/MRI: hip (right) Comments Poorly penetrated second view. Chronic degenerative changes. No overt osseous abnormality. Soft tissue effusion/edema surrounding the right hip. Reviewed: Reviewed by Me Departure Impression Impression: Primary Impression: Fall on same level Qualified Codes: W18.30XA - Fall on same level, unspecified, initial encounter Additional Impression: Contusion of right hip Qualified Codes: S70.01XA - Contusion of right hip, initial encounter Disposition: HOME, SELF-CARE Condition: Stable Departure-Patient Inst. Decision time for Depature: 02:11 Referrals: FREDY GATES DO (PCP/Family) Primary Care Physician Patient Instructions: Preventing Falls in the Older Adult Add. Discharge Instructions: Go home and get some rest and follow-up with her primary care physician as necessary. If you feel that your having troubles you may also talk your primary care physician about a stent and rehabilitation inpatient or outpatient for some physical therapy. Copy Copies To 1: FREDY GATES TITUS J Jul 19, 2017 23:41
[2017-07-19 23:47] LABS: BASOPHILS # (AUTO) 0.1 10^3/uL (0.0-0.1); BASOPHILS % (AUTO) 1 % (0-10); EOSINOPHILS # (AUTO) 0.5 10^3/uL (0.0-0.3); EOSINOPHILS % (AUTO) 7 % (0-10); LYMPHOCYTES # (AUTO) 1.6 X 10^3 (1.0-4.0); LYMPHOCYTES % (AUTO) 22 % (12-44); MEAN CORPUSCULAR HEMOGLOBIN 26 PG (25-34); MEAN CORPUSCULAR HGB CONC 31 G/DL (32-36); MEAN CORPUSCULAR VOLUME 85 FL (80-99); MEAN PLATELET VOLUME 11.3 FL (7.4-10.4); MONOCYTES # (AUTO) 0.6 X 10^3 (0.0-1.0); MONOCYTES % (AUTO) 8 % (0-12); NEUTROPHILS # (AUTO) 4.4 X 10^3 (1.8-7.8); NEUTROPHILS % (AUTO) 62 % (42-75); PLATELET COUNT 244 10^3/uL (130-400); RED BLOOD COUNT 4.13 10^6/uL (4.35-5.85); RED CELL DISTRIBUTION WIDTH 14.3 % (10.0-14.5); WHITE BLOOD COUNT 7.1 10^3/uL (4.3-11.0)
[2017-07-20 00:03] LABS: ANION GAP 12 MMOL/L (5-14); BLOOD UREA NITROGEN 24 MG/DL (7-18); BUN/CREATININE RATIO 19; CALCIUM 8.8 MG/DL (8.5-10.1); CARBON DIOXIDE 24 MMOL/L (21-32); CHLORIDE 109 MMOL/L (98-107); CREATININE SERUM 1.28 MG/DL (0.60-1.30); GFR ESTIMATED 41; GLUCOSE 125 MG/DL (70-105); POTASSIUM 3.7 MMOL/L (3.6-5.0); SODIUM 145 MMOL/L (135-145)
[2017-07-20 00:04] LABS: ALANINE AMINOTRANSFERASE < 6 U/L (0-55); ALBUMIN 3.5 GM/DL (3.2-4.5); ASPARTATE AMINO TRANSFERASE 20 U/L (5-34); BILIRUBIN,TOTAL 1.1 MG/DL (0.1-1.0); TOTAL PROTEIN 6.5 GM/DL (6.4-8.2)
[2017-07-20 01:46] LABS: BILIRUBIN,URINE NEGATIVE (NEGATIVE); KETONES,URINE 1+ (NEGATIVE); LEUKOCYTE ESTERASE ,URINE NEGATIVE (NEGATIVE); NITRITE,URINE NEGATIVE (NEGATIVE); PH,URINE 6 (5-9); PROTEIN,URINE 3+ (NEGATIVE); UROBILINOGEN,URINE NORMAL (NORMAL)
[2017-07-20] MEDS ORDERED: ONDANSETRON 4 MG/2 ML (SDV) Z0FRAN IVP ONE (02:00)
--- NOTE | 2017-07-20 08:00 | Diagnostic Imaging Report ---
INDICATION: Fall, right hip pain. EXAMINATION: Right hip 07/20/2017. FINDINGS: 2 views of the hip. There is some narrowing and spurring in the right hip joint. The crosstable lateral view is nearly nondiagnostic but no obvious dislocations are seen. IMPRESSION: 1. Degenerative findings with no acute process appreciated, however, examination is limited and if patient has continued pain or cannot bear weight, further imaging would be recommended. Dictated by: Dictated on workstation # [id number]
--- NOTE | 2017-07-20 08:00 | Diagnostic Imaging Report ---
INDICATION: Fell, lateral pain EXAMINATION: Right knee dated 07/20/2017 FINDINGS: Three views of the knee demonstrate postoperative change medially. There is narrowing in the medial joint compartment with associated spurring. Patellofemoral narrowing and spurring also noted. Small joint effusion seen. No acute fractures or dislocations appreciated. IMPRESSION: 1. Diffuse chronic changes with no superimposed acute osseous abnormality. Dictated by: Dictated on workstation # [id number]
== END 2017-07-20 02:22 | disposition home or self-care (01) ==
LOC: EDUNIT# 23:26 → ER 23:27
DX: S70.01XA Contusion of right hip, initial encounter (principal); S89.91XA Unspecified injury of right lower leg, initial encounter; M16.11 Unilateral primary osteoarthritis, right hip; G20 Parkinson's disease; I10 Essential (primary) hypertension; I25.10 Atherosclerotic heart disease of native coronary artery without angina pectoris; Z79.02 Long term (current) use of antithrombotics/antiplatelets; Z79.82 Long term (current) use of aspirin; Z79.899 Other long term (current) drug therapy; Z95.1 Presence of aortocoronary bypass graft; Z95.5 Presence of coronary angioplasty implant and graft; W18.12XA Fall from or off toilet with subsequent striking against object, initial encounter; Y92.012 Bathroom of single-family (private) house as the place of occurrence of the external cause; Y99.8 Other external cause status
CPT/HCPCS: 36415; 51701; 73502; 73562; 80053; 81000; 83735; 85025; 96374; 99284

== ENCOUNTER 2017-07-23 02:59 | Emergency (ER) | payer MEDICARE, MEDICAID ==
[~2017-07-23] VITALS: Ht 160 cm; Wt 67.6 kg
[2017-07-23] MEDS ORDERED: ESCI10TA55 (03:04)
[2017-07-23] MEDS ORDERED: CARB1TAB19 (03:04)
--- NOTE | 2017-07-23 03:14 | ED Hip Pain/Injury ---
General Chief Complaint: Hip/Pelvic Problems Stated Complaint: L HIP PAIN Source: patient, EMS Exam Limitations: no limitations History of Present Illness Time seen by provider: 03:05 Initial Comments Patient presents to ER by EMS with a chief complaint of now left hip and left lower abdomen pain. She was seen by this provider 2 days ago after having a fall while getting up off the toilet and fell with her right hip against her walker and floor. At time she did not lose consciousness nor did she strike her head. Her right hip and right knee were evaluated by x-ray which after second reviewing still demonstrate no acute osseous abnormalities however the right hip was a limited exam according to radiology in her clinical exam [place] for that might need further workup and imaging. She is in tonight because her pain has actually gotten worse and spread all over her body. When asked to point to want 6 pot she points to her left greater trochanter of her left femur and anterior right thigh as well as left lower quadrant abdomen. She is unable to support her own weight to stand or to sit up. Prior to her fall she was able to walk with a walker. She is not having any fevers or chills but has some shakes more than just her normal parkinsonism. Patient says she has no nausea vomiting diarrhea or rash. She says she was given aspirin and Tylenol and this helped for a little bit but does not control her pain. Daughter arrived shortly after and right gave the history that she has been helping with her mother and father and making them get up and walk down the [place] to the bathroom several times a day. When she leaves for the evening she leaves the green party chair beside the bed for her mother. The patient remarks that she has been getting up going the bathroom with her 's assistance but he' s recently had a pacemaker placed so is not able to do any lifting. She's not had any falls since her fall 2 days ago. The Tylenol usually works. The daughter states she is worried that maybe the mother is just very anxious about being left alone and her limited mobility and that is part of what's causing this increased pain because it always seems to happen at night after the daughter or her go home. Allergies and Home Medications Allergies Coded Allergies: No Known Drug Allergies (Verified , 07/01/08) Home Medications Amiodarone Hcl 400 Mg Tablet, 400 MG PO DAILY, (Reported) Aspirin 81 Mg Tabec, 81 MG PO DAILY, #30 Prescribed by: SKYE JENKINS on 04/02/14 1811 Atorvastatin Calcium 40 Mg Tablet, 40 MG PO DAILY, (Reported) Carbidopa/Levodopa 1 Each Tablet, (Reported) Clopidogrel 75 Mg Tablet, 75 MG PO DAILY, (Reported) Escitalopram Oxalate 10 Mg Tablet, (Reported) Furosemide 40 Mg Tablet, 40 MG PO DAILY, #90 (Reported) Hctz/Metoprolol 1 Each Tablet, 1 EACH PO DAILY, (Reported) Nitroglycerin 0.4 Mg Subl, 0.4 MG SL PRN, (Reported) Pantoprazole Sodium 40 Mg Tablet.dr, 1 TAB PO DAILY, #90 Ref 5 Prescribed by: RANDA ESCOBAR on 07/08/14 1041 Potassium Chloride 10 Meq Tab.prt.sr, 10 MEQ PO DAILY, #30 (Reported) Primidone 50 Mg Tablet, 50 MG PO HS, (Reported) Constitutional: No chills, No diaphoresis, No fever, No malaise EENTM: No ear pain, No double vision Respiratory: No cough, No short of breath Cardiovascular: No chest pain, No palpitations Gastrointestinal: No abdominal pain, No constipation, No diarrhea, No nausea, No vomiting Genitourinary: No discharge, No dysuria : No Musculoskeletal: see HPI, No back pain, joint pain Skin: No pruritus, No rash, other (ecchymosis right hip) Psychiatric/Neurological: Denies Headache, Denies Numbness, Denies Paresthesia Past Jvtepks-Ryamvr-Vvnlyh Hx Patient Social History Alcohol Use: Denies Use Recreational Drug Use: No Smoking Status: Never a Smoker 2nd Hand Smoke Exposure: No Recent Hopitalizations: No ([place] 2004, KIDNEY STENT 2005, ) Immunizations Up To Date Tetanus Booster (TDap): More than 5yrs Date of Pneumonia Vaccine: April 07, 2014 Seasonal Allergies Seasonal Allergies: Yes Surgeries History of Surgeries: Yes (HYSTERECTOMY, RENAL STENT, HEART CATH) Surgeries: CABG, Coronary Stent, Hysterectomy, Renal Respiratory History of Respiratory Disorde: No Cardiovascular History of Cardiac Disorders: Yes Cardiac Disorders: Coronary Artery Disease, Heart Attack, High Cholesterol, Hypertension Neurological History of Neurological Disord: Yes (hand tremors; possible tia years ago) Reproductive System Hx Reproductive Disorders: No Sexually Transmitted Disease: No 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 Gastrointestinal History of Gastrointestinal Di: No Musculoskeletal History of Musculoskeletal Dis: Yes Musculoskeletal Disorders: Arthritis Endocrine History of Endocrine Disorders: No Cancer History of Cancer: No Psychosocial History of Psychiatric Problem: Yes Behavioral Health Disorders: Depression Integumentary History of Skin or Integumenta: No Blood Transfusions History of Blood Disorders: No Physical Exam Vital Signs Vital Sign - Last 12Hours 07/23/17 03:04 Temp 97.0 Pulse 80 Resp 20 B/P (MAP) 145/67 Pulse Ox 97 O2 Delivery Room Air Capillary Refill : General Appearance: WD/WN, Mild Distress HEENT: PERRL/EOMI, Pharynx Normal Neck: Full Range of Motion, Normal Inspection, Non Tender, Supple Cardiovascular: Regular Rate, Rhythm, No Murmur, Normal Peripheral Pulses Respiratory: Chest Non Tender, Lungs Clear, Normal Breath Sounds Peripheral Pulses: 2+ Dorsalis Pedis (R), 2+ Left Dors-Pedis (L), 2+ Radial Pulses (R), 2+ Radial Pulses (L) Gastrointestinal: Normal Bowel Sounds, Soft, No Distended, Guarding (left lower and right lower quadrant), Tenderness (left and right lower quadrant) Genital/Rectal: Normal Rectal Exam, Normal Rectal Tone, Other (no gross melena. ) Extremity: Normal Capillary Refill, No Pedal Edema Neurologic/Psychiatric: Alert, Oriented x3, No Motor/Sensory Deficits Skin: Normal Color, Warm/Dry, Ecchymosis (over right greater trochanter area and all of right buttock and mcfp down the right posterior thigh as well as the left elbow) Progress/Results/Core Measures Results/Orders Lab Results Laboratory Tests Test 07/23/17 03:10 07/23/17 03:15 Range/Units White Blood Count 10.9 4.3-11.0 10^3/uL Red Blood Count 2.79 L 4.35-5.85 10^6/uL Hemoglobin 7.3 #L 11.5-16.0 G/DL Hematocrit 24 L 35-52 % Mean Corpuscular Volume 87 80-99 FL Mean Corpuscular Hemoglobin 26 25-34 PG Mean Corpuscular Hemoglobin Concent 30 L 32-36 G/DL Red Cell Distribution Width 14.6 H 10.0-14.5 % Platelet Count 251 130-400 10^3/uL Mean Platelet Volume 11.4 H 7.4-10.4 FL Neutrophils (%) (Auto) 68 42-75 % Lymphocytes (%) (Auto) 18 12-44 % Monocytes (%) (Auto) 9 0-12 % Eosinophils (%) (Auto) 4 0-10 % Basophils (%) (Auto) 1 0-10 % Neutrophils # (Auto) 7.4 1.8-7.8 X 10^3 Lymphocytes # (Auto) 2.0 1.0-4.0 X 10^3 Monocytes # (Auto) 1.0 0.0-1.0 X 10^3 Eosinophils # (Auto) 0.5 H 0.0-0.3 10^3/uL Basophils # (Auto) 0.1 0.0-0.1 10^3/uL Sodium Level 144 135-145 MMOL/L Potassium Level 4.2 3.6-5.0 MMOL/L Chloride Level 109 H 98-107 MMOL/L Carbon Dioxide Level 21 21-32 MMOL/L Anion Gap 14 5-14 MMOL/L Blood Urea Nitrogen 41 H 7-18 MG/DL Creatinine 1.68 H 0.60-1.30 MG/DL Estimat Glomerular Filtration Rate 30 BUN/Creatinine Ratio 24 Glucose Level 120 H 70-105 MG/DL Calcium Level 8.9 8.5-10.1 MG/DL Total Bilirubin 2.0 H 0.1-1.0 MG/DL Aspartate Amino Transf (AST/SGOT) 48 H 5-34 U/L Alanine Aminotransferase (ALT/SGPT) < 6 0-55 U/L Alkaline Phosphatase 76 40-136 U/L Total Protein 6.5 6.4-8.2 GM/DL Albumin 3.6 3.2-4.5 GM/DL Urine Color YELLOW Urine Clarity CLEAR Urine pH 5 5-9 Urine Specific [place] 1.020 1.016-1.022 Urine Protein 2+ H NEGATIVE Urine Glucose (UA) NEGATIVE NEGATIVE Urine Ketones NEGATIVE NEGATIVE Urine Nitrite NEGATIVE NEGATIVE Urine Bilirubin NEGATIVE NEGATIVE Urine Urobilinogen NORMAL NORMAL MG/DL Urine Leukocyte Esterase 1+ H NEGATIVE Urine RBC (Auto) 1+ H NEGATIVE Urine RBC 0-2 /HPF Urine WBC 0-2 /HPF Urine Squamous Epithelial Cells 5-10 /HPF Urine Crystals NONE /LPF Urine Bacteria MODERATE H /HPF Urine Casts NONE /LPF Urine Mucus NEGATIVE /LPF Urine Culture Indicated YES My Orders Orders - MURALI JORDAN Cbc With Automated Diff (07/23/17 03:05) Comprehensive Metabolic Panel (07/23/17 03:05) Ua Culture If Indicated (07/23/17 03:05) Fentanyl Injection (Sublimaze Injection (07/23/17 03:15) Ct Abdomen/Pelvis Wo (07/23/17 03:15) Occult Blood Stool (07/23/17 03:29) Urine Culture (07/23/17 03:15) Ns Iv 1000 Ml (Sodium Chloride 0.9%) (07/23/17 03:55) Type And Screen (07/23/17 03:55) Medications Given in ED Current Medications Medications Dose Ordered Sig/Nabila Route Start Time Stop Time Status Last Admin Dose Admin Fentanyl Citrate 50 mcg ONCE ONCE IVP 07/23/17 03:15 07/23/17 03:16 DC 07/23/17 03:21 50 MCG Sodium Chloride 1,000 ml @ 0 mls/hr Q0M ONCE IV 07/23/17 03:55 07/23/17 03:57 DC 07/23/17 04:06 0 MLS/HR Vital Signs/I&O Vital Sign - Last 12Hours 07/23/17 03:04 Temp 97.0 Pulse 80 Resp 20 B/P (MAP) 145/67 Pulse Ox 97 O2 Delivery Room Air Progress Note #1: Time: 03:13 Progress Note Reviewed her previous imaging and notes. Should take a fall or getting up off the toilet. At that time urinalysis was okay and no other evidence of infection seen to explain why she is having her fall. Other than the fact she has parkinsonism. She is now unable to support her own weight even sit up and in quite a bit of pain not relieved very well by Tylenol or aspirin. With her new onset abdominal tenderness at be worried about possible internal bleeding so we' ll get a CAT scan of her belly. This will also allow us to reevaluate her hips but the CAT scan and see if there is any acute osseous abnormalities. Progress Note #2: Time: 03:53 Progress Note Creatinine is marginally elevated and her BUNs up. This be consistent with her being dehydrated she is having a hard time getting up getting something to drink. We'll go ahead and give her a liter of IV fluids. She has what appears to be contaminated urinalysis but does not strike me as likely to be a urinary tract infection. Her hemoglobin however has dropped by over 3 g over the past 1- 1/2 - 2 days. A fecal occult blood test was negative at the bedside. However she does have a pretty significant sized hematoma with induration that could explain some of her blood loss around her right hip. She is having some right inguinal pain I am more concerned now about her having an occult fracture that was missed on the initial x-rays area R CT abdomen pelvis should be able to demonstrate the top part of the reamer and hip to help us look for more subtle fracture. It may also be reasonable to hold on her just so we can check a hemoglobin in the morning and make sure that she's not getting to the neighborhood where she would need transfusion. We'll going get a type and screen. Progress Note #3: Time: 04:20 Progress Note Discussed 2 options with the patient and her daughter that the patient could either be brought in as an observation stay and have her hemoglobin checked later this morning as well as we'll cover with her pain meds or we could let her go home Center some pain meds and have her contact Dr. Gates's office when it opens and get some blood work done either today or tomorrow to follow- up hemoglobin. It does appear that this hemoglobin drop is due to the hematoma and this appears to be stable. She may need iron studies and other things done but this can be done right her primary care physician. The daughter says that she and the patient's granddaughter will trade-off watching her today and we will call Dr. Gates's office to get follow-up set up this morning. The patient and daughter are more comfortable with going home and following up outpatient with their primary care physician. Diagnostic Imaging Diagonstic Imaging: CT Plain Films/CT/US/NM/MRI: abdomen, pelvis Comments Large hematoma involving the substance fend the right buttocks measuring up to 14 7 m agrees axial dimension, with surrounded fat stranding. No evidence of acute fracture involving the left hip. Incidentally there is a small calcifications of the spleen. Both kidneys appear atrophic with evidence of cortical scarring. The liver and gallbladder pancreas and adrenal glands are unremarkable. Severe atherosclerotic vascular calcifications involving intra- abdominal aorta and its branches. Normal caliber bowel seen with evidence of colonic diverticulosis without diverticulitis. Moderate MARA scoliosis the lumbar spinous he would've moderate to severe multilevel degenerative changes. Reviewed: Reviewed by Me Departure Impression Impression: Primary Impression: Fall Qualified Codes: W19.XXXD - Unspecified fall, subsequent encounter Additional Impressions: Contusion of buttock Qualified Codes: S30.0XXD - Contusion of lower back and pelvis, subsequent encounter Anemia associated with acute blood loss Disposition: HOME, SELF-CARE Condition: Stable Departure-Patient Inst. Decision time for Depature: 04:22 Referrals: FREDY GATES DO (PCP/Family) Primary Care Physician Patient Instructions: Contusion (DC) Add. Discharge Instructions: Urine anemic from the blood loss into your large bruise of your right back side. Continue to take your medications as prescribed and first thing in the morning when Dr. Gates's clinic opens up he should give him a call at [phone]. He should have his clinic follow up your anemia with another blood test as well as get scheduled to be seen within the next 1-2 days. If you're having pain you can use the pain medicine a mono prescribe for you but it can cause some drowsiness as well as constipation. 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 If you're having chest pain or shortness of breath he should return to the ER immediately. All discharge instructions reviewed with patient and/or family. Voiced understanding. Scripts Hydrocodone/Acetaminophen (Hydrocodon -Acetaminophen 5-325) 1 Each Tablet 1 EACH PO Q6H Y for PAIN, #14 TAB 0 Refills Prov: MURALI JORDAN 07/23/17 Copy Copies To 1: FREDY GATES TITUS J Jul 23, 2017 03:14
[2017-07-23] MEDS ORDERED: fentaNYL INJECTION 100 MCG/2 ML AMP IVP ONE (03:15)
[2017-07-23 03:20] LABS: BASOPHILS # (AUTO) 0.1 10^3/uL (0.0-0.1); BASOPHILS % (AUTO) 1 % (0-10); EOSINOPHILS # (AUTO) 0.5 10^3/uL (0.0-0.3); EOSINOPHILS % (AUTO) 4 % (0-10); LYMPHOCYTES % (AUTO) 18 % (12-44); MEAN CORPUSCULAR HEMOGLOBIN 26 PG (25-34); MEAN CORPUSCULAR HGB CONC 30 G/DL (32-36); MEAN CORPUSCULAR VOLUME 87 FL (80-99); MEAN PLATELET VOLUME 11.4 FL (7.4-10.4); MONOCYTES % (AUTO) 9 % (0-12); NEUTROPHILS # (AUTO) 7.4 X 10^3 (1.8-7.8); NEUTROPHILS % (AUTO) 68 % (42-75); PLATELET COUNT 251 10^3/uL (130-400); RED BLOOD COUNT 2.79 10^6/uL (4.35-5.85); RED CELL DISTRIBUTION WIDTH 14.6 % (10.0-14.5); WHITE BLOOD COUNT 10.9 10^3/uL (4.3-11.0)
[2017-07-23 03:24] LABS: BILIRUBIN,URINE NEGATIVE (NEGATIVE); KETONES,URINE NEGATIVE (NEGATIVE); LEUKOCYTE ESTERASE ,URINE 1+ (NEGATIVE); NITRITE,URINE NEGATIVE (NEGATIVE); PH,URINE 5 (5-9); PROTEIN,URINE 2+ (NEGATIVE); UROBILINOGEN,URINE NORMAL (NORMAL)
[2017-07-23 03:37] LABS: ALANINE AMINOTRANSFERASE < 6 U/L (0-55); ALBUMIN 3.6 GM/DL (3.2-4.5); ANION GAP 14 MMOL/L (5-14); ASPARTATE AMINO TRANSFERASE 48 U/L (5-34); BLOOD UREA NITROGEN 41 MG/DL (7-18); BUN/CREATININE RATIO 24; CALCIUM 8.9 MG/DL (8.5-10.1); CARBON DIOXIDE 21 MMOL/L (21-32); CHLORIDE 109 MMOL/L (98-107); CREATININE SERUM 1.68 MG/DL (0.60-1.30); GFR ESTIMATED 30; GLUCOSE 120 MG/DL (70-105); POTASSIUM 4.2 MMOL/L (3.6-5.0); SODIUM 144 MMOL/L (135-145); TOTAL PROTEIN 6.5 GM/DL (6.4-8.2)
[2017-07-23 03:38] LABS: WBC,URINE 0-2 /HPF
[2017-07-23] MEDS ORDERED: NS IV 1000 ML 1,000 ML IV ONE (03:55)
[2017-07-23] MEDS ORDERED: HYDR-3812 PO (04:25)
[2017-07-23] MEDS ORDERED: RX-HYDROCODONE/APAP 5/325 MG #4 TAB PK PO PRN (04:30)
[2017-07-23 04:38] VITALS: BP 143/59
--- NOTE | 2017-07-23 08:54 | Diagnostic Imaging Report ---
PROCEDURE: CT abdomen and pelvis without contrast. TECHNIQUE: Multiple contiguous axial images were obtained through the abdomen and pelvis without the use of intravenous contrast. INDICATION: Hip and buttock pain after fall. Comparison made to prior examination 10/28/2015. FINDINGS: The lung bases are clear. There are coronary artery calcifications. There is cardiomegaly. The liver is normal in size and without focal lesions. There is cholelithiasis. There are calcified granulomas in the spleen. The pancreas and adrenal glands are unremarkable. There is atrophy and cortical scarring of the kidneys. There is no evidence of nephrolithiasis or obstructive uropathy. There is moderate atherosclerotic calcification of the aorta which is nonaneurysmal. Bowel gas pattern is nonspecific. There is diverticular disease without evidence of diverticulitis. There is no pelvic mass, adenopathy, or free fluid. There is a large subcutaneous hematoma in the right gluteal region measuring up to 14 cm in greatest axial dimension. There is some surrounding fat stranding. There are degenerative changes in the spine. Both proximal femurs are intact. There is no evidence of fracture. IMPRESSION: Large subcutaneous hematoma in the right gluteal region measuring up to 14 cm. There is no evidence of underlying hip fracture. Diverticular disease without evidence of diverticulitis. Coronary artery calcification. Dictated by: Dictated on workstation # [id number]
== END 2017-07-23 04:38 | disposition home or self-care (01) ==
LOC: EDUNIT# 02:59 → ER 03:01
DX: S30.0XXA Contusion of lower back and pelvis, initial encounter (principal); D50.0 Iron deficiency anemia secondary to blood loss (chronic); I25.10 Atherosclerotic heart disease of native coronary artery without angina pectoris; E78.00 Pure hypercholesterolemia, unspecified; I10 Essential (primary) hypertension; M19.90 Unspecified osteoarthritis, unspecified site; F32.9 Major depressive disorder, single episode, unspecified; I25.2 Old myocardial infarction; Z96.0 Presence of urogenital implants; Z95.0 Presence of cardiac pacemaker; Z79.82 Long term (current) use of aspirin; Z90.710 Acquired absence of both cervix and uterus; Z95.5 Presence of coronary angioplasty implant and graft; Z95.1 Presence of aortocoronary bypass graft; W18.30XA Fall on same level, unspecified, initial encounter; Y92.002 Bathroom of unspecified non-institutional (private) residence as the place of occurrence of the external cause
CPT/HCPCS: 36415; 74176; 80053; 81000; 85025; 86850; 86900; 86901; 87088; 96374

== ENCOUNTER → 2017-07-24 | Outpatient (CLI) | payer MEDICARE, MEDICAID ==
[~2017-07-24] MED LIST changes: +CARB1TAB19; +ESCI10TA55; +HYDR-3812 PO
[2017-07-24 15:07] LABS: MEAN PLATELET VOLUME 10.7 FL (7.4-10.4); RED BLOOD COUNT 2.72 10^6/uL (4.35-5.85); RED CELL DISTRIBUTION WIDTH 15.3 % (10.0-14.5); WHITE BLOOD COUNT 9.9 10^3/uL (4.3-11.0)
== END ==
LOC: LAB 14:26
PROVIDERS: ATTEND Family Medicine
DX: D64.9 Anemia, unspecified (principal)
CPT/HCPCS: 36415; 85027

== ENCOUNTER 2017-07-26 14:15 | Outpatient (CLI) | payer MEDICARE, MEDICAID ==
[2017-07-26] VITALS (7 sets, daily range): BP systolic 120–168; BP diastolic 59–84
[~2017-07-26] VITALS: Ht 160 cm; Wt 67.6 kg
[2017-07-26] MEDS ORDERED: diphenhydrAMINE 25 MG TAB (BENADRYL) PO ONE ×2 (14:32→14:45)
[2017-07-26] MEDS ORDERED: ACETAMINOPHEN 325 MG TABLET/CAPLET (TYLENOL) ONE (14:32)
[2017-07-26] MEDS ORDERED: NS IV 500 ML 500 ML ONE (14:32)
[2017-07-26] MEDS ORDERED: NS IV 500 ML 500 ML IV ONE (14:45)
[2017-07-26] MEDS ORDERED: ACETAMINOPHEN 325 MG TABLET/CAPLET (TYLENOL) PO ONE (14:45)
[2017-07-26 15:17] LABS: RED BLOOD COUNT 2.67 10^6/uL (4.35-5.85); WHITE BLOOD COUNT 11.3 10^3/uL (4.3-11.0)
[2017-07-26] MEDS ORDERED: ACETAMINOPHEN 500 MG TAB (TYLENOL) ONE (18:03)
[2017-07-26] MEDS ORDERED: ACETAMINOPHEN 500 MG TAB (TYLENOL) PO NR (18:15)
[2017-07-26] MEDS ORDERED: ACETAMINOPHEN 325 MG TABLET/CAPLET (TYLENOL) PO NR (18:30)
[2017-07-27 01:04] VITALS: BP 152/74
== END 2017-07-26 21:30 | disposition home or self-care (01) ==
LOC: SDC 14:15 → 4TH 16:55 → SDC 21:30
PROVIDERS: ATTEND Family Medicine
DX: D64.9 Anemia, unspecified (principal); R06.02 Shortness of breath
CPT/HCPCS: 36415; 85027; 86850; 86900; 86901; 86920

== ENCOUNTER 2017-07-30 07:28 | Inpatient (IN) | payer MEDICARE, MEDICAID ==
[~2017-07-30] VITALS: Ht 160 cm; Wt 77.1 kg
[2017-07-30 07:30] VITALS: BP 194/105
[2017-07-30] MEDS ORDERED: RT-ALBUTEROL/IPRATROPIUM 3 ML (DUONEB) VIAL ONE (07:46)
[2017-07-30] MEDS ORDERED: RT-ALBUTEROL/IPRATROPIUM 3 ML (DUONEB) VIAL INH ONE (08:00)
[2017-07-30 08:04] LABS: BASOPHILS % (AUTO) 0 % (0-10); EOSINOPHILS % (AUTO) 0 % (0-10); LYMPHOCYTES # (AUTO) 0.5 X 10^3 (1.0-4.0); LYMPHOCYTES % (AUTO) 5 % (12-44); MEAN CORPUSCULAR HEMOGLOBIN 27 PG (25-34); MEAN CORPUSCULAR HGB CONC 31 G/DL (32-36); MEAN CORPUSCULAR VOLUME 88 FL (80-99); MEAN PLATELET VOLUME 10.5 FL (7.4-10.4); MONOCYTES # (AUTO) 0.4 X 10^3 (0.0-1.0); MONOCYTES % (AUTO) 4 % (0-12); NEUTROPHILS # (AUTO) 9.7 X 10^3 (1.8-7.8); NEUTROPHILS % (AUTO) 91 % (42-75); PLATELET COUNT 316 10^3/uL (130-400); RED BLOOD COUNT 3.84 10^6/uL (4.35-5.85); RED CELL DISTRIBUTION WIDTH 19.3 % (10.0-14.5); WHITE BLOOD COUNT 10.6 10^3/uL (4.3-11.0)
[2017-07-30 08:06] LABS: BILIRUBIN,URINE NEGATIVE (NEGATIVE); KETONES,URINE 1+ (NEGATIVE); LEUKOCYTE ESTERASE ,URINE NEGATIVE (NEGATIVE); NITRITE,URINE NEGATIVE (NEGATIVE); PH,URINE 5 (5-9); PROTEIN,URINE 3+ (NEGATIVE); UROBILINOGEN,URINE NORMAL (NORMAL)
[2017-07-30 08:15] LABS: INR 1.2 (0.8-1.4); PROTHROMBIN TIME PATIENT 14.9 SEC (12.2-14.7)
[2017-07-30 08:18] LABS: SQUAMOUS EPITHELIAL CELL,UR 0-2 /HPF
--- NOTE | 2017-07-30 08:18 | ED Neurological Problem ---
General Chief Complaint: Altered Mental Status Stated Complaint: UNRESPONSIVE Nursing Triage Note: Pt was found unresponsive by her . Last known well time 0800. Fever noted. Nursing Sepsis Screen: Possible Severe Sepsis Risk Source: patient Exam Limitations: no limitations History of Present Illness Time seen by provider: 07:30 Initial Comments Here with report by EMS and being found unresponsive at home by her . Last known well time was 8 p.m. last night. Fever was noted. Apparently she woke up at 3 a.m. and was confused. This morning she continued to be confused and was noted to have fever. She is breathing erratically. Patient did have a fall a few weeks ago and has a large section of bruising to her right leg that apparently is better. Patient does not answer questions. She does have a leftward gaze. No report of recent falls otherwise. She is not on blood thinners. Timing/Duration: increasing Severity: severe Associated Symptoms: fever/chills Allergies and Home Medications Allergies Coded Allergies: No Known Drug Allergies (Verified , 07/01/08) Home Medications Amiodarone Hcl 400 Mg Tablet, 400 MG PO DAILY, (Reported) Atorvastatin Calcium 40 Mg Tablet, 40 MG PO DAILY, (Reported) Carbidopa/Levodopa 1 Each Tablet, (Reported) Escitalopram Oxalate 10 Mg Tablet, (Reported) Furosemide 40 Mg Tablet, 40 MG PO DAILY, #90 (Reported) Hctz/Metoprolol 1 Each Tablet, 1 EACH PO DAILY, (Reported) Hydrocodone/Acetaminophen 1 Each Tablet, 1 EACH PO Q6H PRN for PAIN, #14 Ref 0 Prescribed by: MURALI JORDAN on 07/23/17 0425 Nitroglycerin 0.4 Mg Subl, 0.4 MG SL PRN, (Reported) Pantoprazole Sodium 40 Mg Tablet.dr, 1 TAB PO DAILY, #90 Ref 5 Prescribed by: RANDA ESCOBAR on 07/08/14 1041 Potassium Chloride 10 Meq Tab.prt.sr, 10 MEQ PO DAILY, #30 (Reported) Primidone 50 Mg Tablet, 50 MG PO HS, (Reported) Constitutional: see HPI, fever, weakness Psychiatric/Neurological: See HPI Other Unable to complete review of systems due to altered mental status and patient's underlying medical condition. Past Pnoeufe-Fkywig-Mytrkt Hx Patient Social History Alcohol Use: Denies Use Recreational Drug Use: No Smoking Status: Unknown if Ever Smoked 2nd Hand Smoke Exposure: No Recent Foreign Travel: No Contact w/Someone Who Travel: No Recent Infectious Disease Expo: No Recent Hopitalizations: No ([place] 2004, KIDNEY STENT 2005, ) Immunizations Up To Date Tetanus Booster (TDap): More than 5yrs Date of Pneumonia Vaccine: April 07, 2014 Seasonal Allergies Seasonal Allergies: Yes Surgeries History of Surgeries: Yes (HYSTERECTOMY, RENAL STENT, HEART CATH) Surgeries: CABG, Coronary Stent, Hysterectomy, Renal Respiratory History of Respiratory Disorde: No Cardiovascular History of Cardiac Disorders: Yes Cardiac Disorders: Coronary Artery Disease, Heart Attack, High Cholesterol, Hypertension Neurological History of Neurological Disord: Yes (hand tremors; possible tia years ago) Reproductive System Hx Reproductive Disorders: No Sexually Transmitted Disease: No HIV/AIDS: 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 Physical Exam Vital Signs Vital Sign - Last 12Hours 07/30/17 07/30/17 07/30/17 07/30/17 07:28 07:30 08:03 08:13 Temp 100.9 Pulse 90 Resp 16 B/P (MAP) 194/105 Pulse Ox 96 O2 Delivery Nasal Cannula O2 Flow Rate 2.00 Capillary Refill : Less Than 3 Seconds General Appearance: WD/WN, mild distress (unresponsive) HEENT: PERRL/EOMI, other (leftward gaze) Neck: full range of motion, supple Respiratory: lungs clear, normal breath sounds Cardiovascular: no murmur, tachycardia Peripheral Pulses: 2+ Dorsalis Pedis (R), 2+ Left Dors-Pedis (L), 2+ Radial Pulses (R), 2+ Radial Pulses (L) Gastrointestinal: non tender, soft Back: normal inspection, no CVA tenderness Extremities: normal range of motion, no pedal edema, no calf tenderness, normal capillary refill, pelvis stable Neurologic/Psychiatric: disoriented x 3, other (localizes to pain. Does not answer questions. Maintaining airway currently.) Crainal Nerves: abnormal eye position Skin: warm/dry, ecchymosis (right hip area from iliac crest to below the knee laterally) Focused Exam Evaluation Lactate Level Laboratory Tests 07/30/17 07:35: Lactic Acid Level 2.00 Lactic Acid Level Laboratory Tests Test 07/30/17 07:35 Lactic Acid Level 2.00 MMOL/L (0.50-2.00) Progress/Results/Core Measures Results/Orders Lab Results Laboratory Tests Test 07/30/17 07:35 07/30/17 07:45 Range/Units White Blood Count 10.6 4.3-11.0 10^3/uL Red Blood Count 3.84 L 4.35-5.85 10^6/uL Hemoglobin 10.5 #L 11.5-16.0 G/DL Hematocrit 34 L 35-52 % Mean Corpuscular Volume 88 80-99 FL Mean Corpuscular Hemoglobin 27 25-34 PG Mean Corpuscular Hemoglobin Concent 31 L 32-36 G/DL Red Cell Distribution Width 19.3 H 10.0-14.5 % Platelet Count 316 130-400 10^3/uL Mean Platelet Volume 10.5 H 7.4-10.4 FL Neutrophils (%) (Auto) 91 H 42-75 % Lymphocytes (%) (Auto) 5 L 12-44 % Monocytes (%) (Auto) 4 0-12 % Eosinophils (%) (Auto) 0 0-10 % Basophils (%) (Auto) 0 0-10 % Neutrophils # (Auto) 9.7 H 1.8-7.8 X 10^3 Lymphocytes # (Auto) 0.5 L 1.0-4.0 X 10^3 Monocytes # (Auto) 0.4 0.0-1.0 X 10^3 Eosinophils # (Auto) 0.0 0.0-0.3 10^3/uL Basophils # (Auto) 0.0 0.0-0.1 10^3/uL Neutrophils % (Manual) 95 % Lymphocytes % (Manual) 4 % Monocytes % (Manual) 1 % Hypochromasia MODERATE Prothrombin Time 14.9 H 12.2-14.7 SEC INR Comment 1.2 0.8-1.4 Activated Partial Thromboplast Time 29 24-35 SEC D-Dimer 3.66 H 0.00-0.49 UG/ML Sodium Level 148 H 135-145 MMOL/L Potassium Level 4.1 3.6-5.0 MMOL/L Chloride Level 113 H 98-107 MMOL/L Carbon Dioxide Level 20 L 21-32 MMOL/L Anion Gap 15 H 5-14 MMOL/L Blood Urea Nitrogen 38 H 7-18 MG/DL Creatinine 1.45 H 0.60-1.30 MG/DL Estimat Glomerular Filtration Rate 35 BUN/Creatinine Ratio 26 Glucose Level 141 H 70-105 MG/DL Lactic Acid Level 2.00 0.50-2.00 MMOL/L Calcium Level 9.3 8.5-10.1 MG/DL Total Bilirubin 2.7 H 0.1-1.0 MG/DL Aspartate Amino Transf (AST/SGOT) 48 H 5-34 U/L Alanine Aminotransferase (ALT/SGPT) 22 0-55 U/L Alkaline Phosphatase 92 40-136 U/L Troponin I 2.67 *H <0.30 NG/ML Total Protein 7.0 6.4-8.2 GM/DL Albumin 3.7 3.2-4.5 GM/DL Thyroid Stimulating Hormone (TSH) 1.60 0.35-4.94 UIU/ML Urine Color YELLOW Urine Clarity CLEAR Urine pH 5 5-9 Urine Specific [place] 1.020 1.016-1.022 Urine Protein 3+ H NEGATIVE Urine Glucose (UA) NEGATIVE NEGATIVE Urine Ketones 1+ H NEGATIVE Urine Nitrite NEGATIVE NEGATIVE Urine Bilirubin NEGATIVE NEGATIVE Urine Urobilinogen NORMAL NORMAL MG/DL Urine Leukocyte Esterase NEGATIVE NEGATIVE Urine RBC (Auto) 5+ H NEGATIVE Urine RBC NONE /HPF Urine WBC NONE /HPF Urine Squamous Epithelial Cells 0-2 /HPF Urine Crystals NONE /LPF Urine Amorphous Sediment MOD JOSE MARTIN URATES H /LPF Urine Bacteria TRACE /HPF Urine Casts NONE /LPF Urine Mucus NEGATIVE /LPF Urine Culture Indicated NO My Orders Orders - JOYCE POOL MD Cbc With Automated Diff (07/30/17 07:38) Protime With Inr (07/30/17 07:38) Partial Thromboplastin Time (07/30/17 07:38) Comprehensive Metabolic Panel (07/30/17 07:38) Fibrin Degradation Products (07/30/17 07:38) Troponin I (07/30/17 07:38) Ua Culture If Indicated (07/30/17 07:38) Chest 1 View, Ap/Pa Only (07/30/17 07:38) Catheter(Urinary) Insert & Ass 03,15 (07/30/17 07:38) Ekg Tracing (07/30/17 07:38) Nothing By Mouth (07/30/17 Lunch) Accucheck Stat ONCE (07/30/17 07:38) Saline Lock/Iv-Start (07/30/17 07:38) Saline Lock/Iv-Start (07/30/17 07:38) Vital Signs - Stroke Q15M (07/30/17 07:38) Ct Head Wo-R/O Stroke (07/30/17 07:38) O2 (07/30/17 07:38) Intake & Output 06,14,22 (07/30/17 07:38) Monitor-Rhythm Ecg Trace Only (07/30/17 07:38) Dysphagia Screening Tool (07/30/17 07:38) Thyroid Stimulating Hormone (07/30/17 07:38) Blood Culture (07/30/17 07:38) Lactic Acid Analyzer (07/30/17 07:38) Albuterol/Ipra Inhalation Soln (Duoneb I (07/30/17 08:00) Svn Sm Volume Nebulizer Rt-Rfs (07/30/17 07:52) Albuterol/Ipra Inhalation Soln (Duoneb I (07/30/17 07:46) Manual Differential (07/30/17 07:35) Morphine Injection (Morphine Injection (07/30/17 09:05) Medications Given in ED Current Medications Medications Dose Ordered Sig/Nabila Route Start Time Stop Time Status Last Admin Dose Admin Albuterol/ Ipratropium 3 ml ONCE ONCE INH 07/30/17 08:00 07/30/17 08:01 DC 07/30/17 07:59 3 ML Vital Signs/I&O Vital Sign - Last 12Hours 07/30/17 07/30/17 07/30/17 07/30/17 07:28 07:30 08:03 08:13 Temp 100.9 Pulse 90 96 Resp 16 18 B/P (MAP) 194/105 194/105 Pulse Ox 96 96 96 O2 Delivery Nasal Cannula Nasal Cannula Nasal Cannula O2 Flow Rate 2.00 07/30/17 09:16 Temp 100.9 Blood Pressure Mean: 134 Progress Note : Progress Note Seen and evaluated. IV, labs, UA, Ibarra catheter, blood cultures, lactic acid, CT head, chest x-ray ordered. ABG and end-tidal CO2 ordered. Duo neb ordered for mild retractions. Monitor patient. This did help her breathing a little bit although patient remains essentially unresponsive. Patient did get a CT scan and I did discuss the case with radiologist at 0834. There is a large left -sided stroke involving the MCA distribution that is subacute and likely one to 3 days. Patient is well outside of TPA window on arrival with last known well time at 8 p.m. last night. Family understands. Stroke of this caliber has high mortality and this was discussed with family. Likely unsurvivable. Due to patient's disorganized breathing there is concerns about the need for intubation. After long discussion with family, all agree that she will be DO NOT RESUSCITATE and placed on comfort care. No further aggressive testing or therapy will be pursued. 0900: Patient's troponin is also elevated indicating non-ST elevation [place]. Patient is hypertensive which is likely related to the stroke. Again we will not pursue significant measures. Morphine 2 mg IV for breathing and discomfort. I did discuss the case with Dr. Ndiaye at 0845 and she accepts the patient for admission for comfort care as corporate communications manager for Dr. Gates. ECG Initial ECG Impression Date: Jul 30, 2017 Initial ECG Impression Time: 08:37 Initial ECG Rate: 109 Initial ECG Rhythm: S.Tach Comment Sinus tachycardia with LVH. Question of anterior infarct. Left axis deviation. Overall similar in appearance to 01 Apr 2014. Interpreted by me. No evidence of ST elevation [place]. Diagnostic Imaging Diagonstic Imaging: CT Plain Films/CT/US/NM/MRI: head [facility] [place], [place] NAME: JACOBO BENTLEY [employer] REC#: [id number] PT STATUS: REG ER : 1940 PHYSICIAN: JOYCE POOL MD ADMIT DATE: 07/30/17/ER Draft Date of Exam:07/30/17 CT HEAD WO-R/O STROKE INDICATION: Fever of unknown origin, lethargy. Exam compared with 10/28/2015. FINDINGS: There is a very well demarcated and sharply visualized zone of edema throughout the left MCA territory consistent with a subacute large left MCA territorial infarct. No hemorrhagic component or resultant mass effect. There is no shifting of the midline structures. The basilar cisterns patent. There is no hydrocephalus. IMPRESSION: Have developed since the prior is a large region of likely subacute ischemia throughout the left MCA territory without a hemorrhagic component nor resultant mass effect. A more chronic cortical infarct in the high posterior right parietal lobe noted. Pertinent results phoned to the ER physician. Dictated on workstation # [id number] Dict: 07/30/1730 Trans: 07/30/17 0915 [facility] [id number] Interpreted by: RUTHY HODGES Electronically signed by: Diagonstic Imaging: Xray Plain Films/CT/US/NM/MRI: chest Comments VIA [facility]. [place], [place] NAME: JACOBO BENTLEY [employer] REC#: [id number] PT STATUS: REG ER : 1940 PHYSICIAN: JOYCE POOL MD ADMIT DATE: 07/30/17/ER Draft Date of Exam:07/30/17 CHEST 1 VIEW, AP/PA ONLY INDICATION: Fever of unknown origin, lethargy. Compared 10/28/2015 FINDINGS: Sternal wires midline. The heart size enlarged. There is bilateral infiltrates and elevated right diaphragm. No effusion or pneumothorax. IMPRESSION: New bilateral infiltrates without pleural pathology, chronic right diaphragmatic elevation, mild increased cardiomegaly. Dictated on workstation # [id number] Dict: 07/30/17828 Trans: 07/30/17 0840 JOSE ALFREDO [id number] Interpreted by: RUTHY HODGES Electronically signed by: Departure Communication (Admissions) Time/Spoke to Admitting Phy: 08:45 Impression Impression: Primary Impression: Left acute arterial ischemic stroke, MCA (middle cerebral artery) Additional Impressions: Non-ST elevation [place] (NSTEMI) Need for comfort care Disposition: ADMITTED INPATIENT Condition: Critical Admissions Decision to Admit Reason: Admit from ER (General) Decision to Admit/Date: Jul 30, 2017 Time/Decision to Admit Time: 08:45 Departure-Patient Inst. Referrals: FREDY GATES DO (PCP/Family) Primary Care Physician JOYCE POOL MD Jul 30, 2017 08:18
[2017-07-30 08:27] LABS: ALBUMIN 3.7 GM/DL (3.2-4.5); BILIRUBIN,TOTAL 2.7 MG/DL (0.1-1.0); CALCIUM 9.3 MG/DL (8.5-10.1); CREATININE SERUM 1.45 MG/DL (0.60-1.30); POTASSIUM 4.1 MMOL/L (3.6-5.0)
[2017-07-30 08:37] LABS: HYPOCHROMASIA MODERATE; LYMPHOCYTES % (MANUAL) 4 %; NEUTROPHILS % (MANUAL) 95 %
--- NOTE | 2017-07-30 08:40 | Diagnostic Imaging Report ---
INDICATION: Fever of unknown origin, lethargy. Compared 10/28/2015 FINDINGS: Sternal wires midline. The heart size enlarged. There is bilateral infiltrates and elevated right diaphragm. No effusion or pneumothorax. IMPRESSION: New bilateral infiltrates without pleural pathology, chronic right diaphragmatic elevation, mild increased cardiomegaly. Dictated by: Dictated on workstation # [id number]
[2017-07-30 08:47] LABS: THYROID STIMULATING HORMONE 1.6 UIU/ML (0.35-4.94)
[2017-07-30 08:54] LABS: TROPONIN I 2.67 NG/ML (<0.30)
[2017-07-30] MEDS ORDERED: morphine INJ 10 MG/ML 1ML (SYR OR VIAL) IVP STA (09:05)
--- NOTE | 2017-07-30 09:15 | Diagnostic Imaging Report ---
INDICATION: Fever of unknown origin, lethargy. Exam compared with 10/28/2015. FINDINGS: There is a very well demarcated and sharply visualized zone of edema throughout the left MCA territory consistent with a subacute large left MCA territorial infarct. No hemorrhagic component or resultant mass effect. There is no shifting of the midline structures. The basilar cisterns patent. There is no hydrocephalus. IMPRESSION: Have developed since the prior is a large region of likely subacute ischemia throughout the left MCA territory without a hemorrhagic component nor resultant mass effect. A more chronic cortical infarct in the high posterior right parietal lobe noted. Pertinent results phoned to the ER physician. Dictated by: Dictated on workstation # [id number]
[2017-07-30 10:55] VITALS: BP 190/90
[2017-07-30] MEDS ORDERED: morphine INJ 4 MG/ML 1 ML (VIAL/SYRINGE) ONE (13:04)
--- NOTE | 2017-07-30 13:08 | History & Physicial ---
History of Present Illness History of Present Illness Reason for visit/HPI This is a 77 year old female who was brought to the emergency room after she was found unresponsive by her . In the emergency room she was having erratic respirations and found to be unresponsive with a left lateral gaze. Her CT scan of the head showed a large ischemic stroke on the left side in the distribution of the MCA. She was also found to have and elevated troponin as well as bilateral pulmonary infiltrates. After discussion with the family, it was decided to admit her for comfort care. Date of Admission Jul 30, 2017 at 09:46 Date Seen by Provider: Jul 30, 2017 Time Seen by Provider: 13:02 I consulted on this patient on 07/30/17 13:02 Attending Physician Miguelito Davidson DO Admitting Physician Miguelito Davidson DO Consult Allergies and Home Medications Allergies Coded Allergies: No Known Drug Allergies (Verified , 07/01/08) Home Medications Amiodarone Hcl 400 Mg Tablet, 400 MG PO DAILY, (Reported) Atorvastatin Calcium 40 Mg Tablet, 40 MG PO DAILY, (Reported) Carbidopa/Levodopa 1 Each Tablet, (Reported) Escitalopram Oxalate 10 Mg Tablet, (Reported) Furosemide 40 Mg Tablet, 40 MG PO DAILY, #90 (Reported) Hctz/Metoprolol 1 Each Tablet, 1 EACH PO DAILY, (Reported) Hydrocodone/Acetaminophen 1 Each Tablet, 1 EACH PO Q6H PRN for PAIN, #14 Ref 0 Prescribed by: MURALI JORDAN on 07/23/17 0425 Nitroglycerin 0.4 Mg Subl, 0.4 MG SL PRN, (Reported) Pantoprazole Sodium 40 Mg Tablet.dr, 1 TAB PO DAILY, #90 Ref 5 Prescribed by: RANDA ESCOBAR on 07/08/14 1041 Potassium Chloride 10 Meq Tab.prt.sr, 10 MEQ PO DAILY, #30 (Reported) Primidone 50 Mg Tablet, 50 MG PO HS, (Reported) Past Adgowep-Bnjqps-Ajnxzm Hx Patient Social History Alcohol Use: Denies Use Recreational Drug Use: No Smoking Status: Unknown if Ever Smoked 2nd Hand Smoke Exposure: No Recent Foreign Travel: No Contact w/other who traveled: No Recent Hopitalizations: No ([place] 2004, KIDNEY STENT 2005, ) Recent Infectious Disease Expo: No Immunizations Up To Date Tetanus Booster (TDap): More than 5yrs Date of Pneumonia Vaccine: April 07, 2014 Seasonal Allergies Seasonal Allergies: Yes Surgeries Yes (HYSTERECTOMY, RENAL STENT, HEART CATH) CABG, Coronary Stent, Hysterectomy, Renal Respiratory No Cardiovascular Yes Coronary Artery Disease, Heart Attack, High Cholesterol, Hypertension Neurological Yes (hand tremors; possible tia years ago) Reproductive System Hx Reproductive Disorders: No Sexually Transmitted Disease: No HIV/AIDS: No 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, 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 Gastrointestinal No Musculoskeletal Yes Arthritis Endocrine History of Endocrine Disorders: No Cancer No Psychosocial History of Psychiatric Problem: Yes Behavioral Health Disorders: Depression Integumentary History of Skin or Integumenta: No Blood Transfusions History of Blood Disorders: No Reviewed Nursing Assessment Reviewed/Agree w Nursing PMH: Yes Family Medical History Significant Family History: No Pertinent Family Hx Constitutional: fever, weakness EENTM: other (left lateral gaze) Respiratory: short of breath Cardiovascular: No no symptoms reported, No see HPI, No chest pain, No edema, No Hx of Intervention, No palpitations, No syncope, No vascular heart diseas, No other Gastrointestinal: No RUQ, No LUQ, No RLQ, No LLQ, No no symptoms reported, No see HPI, No abdominal pain, No constipation, No diarrhea, No dysphagia, No hematemesis, No heartburn, No jaundice, No loss of appetite, No melena, No nausea, No vomiting, No other Genitourinary: No no symptoms reported, No see HPI, No decreased output, No discharge, No dysuria, No frequency, No hematuria, No hesitancy, No incontinence , No nocturia, No pain, No other Musculoskeletal: muscle twitching (left hand) Skin: other (ecchymosis right leg) Psychiatric/Neurological: Weakness (unresponsive), Other (unresponsiveness) Physical Exam Vital Signs Vital Sign - Last 12Hours 07/30/17 07/30/17 07/30/17 07/30/17 07:28 07:30 08:03 08:13 Temp 100.9 Pulse 90 Resp 16 B/P (MAP) 194/105 Pulse Ox 96 O2 Delivery Nasal Cannula O2 Flow Rate 2.00 Capillary Refill : Less Than 3 Seconds General Appearance: Other (unresponsive ) Eyes: Bilateral Eye Abnormal EOM (left lateral gaze) HEENT: Pharynx Normal Neck: Supple Respiratory: Crackles, Decreased Breath Sounds, Respiratory Distress (mild) Cardiovascular: Regular Rate, Rhythm, Systolic Murmur Gastrointestinal: Normal Bowel Sounds, Soft Rectal: Deferred Back: Normal Inspection Extremity: No Calf Tenderness, No Pedal Edema Neurologic/Psychiatric: Motor Weakness (generalized), Other (unresponsive) Skin: Warm/Dry Comments Laboratory Tests 07/30/17 07:35: White Blood Count 10.6, Red Blood Count 3.84L, Hemoglobin 10.5#L, Hematocrit 34L , Mean Corpuscular Volume 88, Mean Corpuscular Hemoglobin 27, Mean Corpuscular Hemoglobin Concent 31L, Red Cell Distribution Width 19.3H, Platelet Count 316, Mean Platelet Volume 10.5H, Neutrophils (%) (Auto) 91H, Lymphocytes (%) (Auto) 5L, Monocytes (%) (Auto) 4, Eosinophils (%) (Auto) 0, Basophils (%) (Auto) 0, Neutrophils # (Auto) 9.7H, Lymphocytes # (Auto) 0.5L, Monocytes # (Auto) 0.4, Eosinophils # (Auto) 0.0, Basophils # (Auto) 0.0, Neutrophils % (Manual) 95, Lymphocytes % (Manual) 4, Monocytes % (Manual) 1, Hypochromasia MODERATE, Prothrombin Time 14.9H, INR Comment 1.2, Activated Partial Thromboplast Time 29 , D-Dimer 3.66H, Sodium Level 148H, Potassium Level 4.1, Chloride Level 113H, Carbon Dioxide Level 20L, Anion Gap 15H, Blood Urea Nitrogen 38H, Creatinine 1.45H, Estimat Glomerular Filtration Rate 35, BUN/Creatinine Ratio 26, Glucose Level 141H, Lactic Acid Level 2.00, Calcium Level 9.3, Total Bilirubin 2.7H, Aspartate Amino Transf (AST/SGOT) 48H, Alanine Aminotransferase (ALT/SGPT) 22, Alkaline Phosphatase 92, Troponin I 2.67*H, Total Protein 7.0, Albumin 3.7, Thyroid Stimulating Hormone (TSH) 1.60 07/30/17 07:45: Urine Color YELLOW, Urine Clarity CLEAR, Urine pH 5, Urine Specific [place] 1.020, Urine Protein 3+H, Urine Glucose (UA) NEGATIVE, Urine Ketones 1+H, Urine Nitrite NEGATIVE, Urine Bilirubin NEGATIVE, Urine Urobilinogen NORMAL, Urine Leukocyte Esterase NEGATIVE, Urine RBC (Auto) 5+H, Urine RBC NONE, Urine WBC NONE, Urine Squamous Epithelial Cells 0-2, Urine Crystals NONE, Urine Amorphous Sediment MOD JOSE MARTIN URATESH, Urine Bacteria TRACE, Urine Casts NONE, Urine Mucus NEGATIVE, Urine Culture Indicated NO Assessment/Plan Assessment and Plan 1. Large left sided ischemic stroke in distribution of MCA with non-STEMI and bilateral pneumonia--prognosis is poor so family has decided on comfort care Problems: JEN INFANTE DO Jul 30, 2017 13:07
[2017-07-30] MEDS ORDERED: ACETAMINOPHEN 650 MG SUPP (TYLENOL) PR PRN (13:15)
[2017-07-30] MEDS ORDERED: PROMETHAZINE INJ 25 MG/ML (PHENERGAN) AMP IVP PRN (13:15)
[2017-07-30] MEDS ORDERED: ONDANSETRON 4 MG/2 ML (SDV) Z0FRAN IVP PRN (13:15)
[2017-07-30] MEDS ORDERED: BISACODYL 10 MG SUPP (DULCOLAX) PR PRN (13:15)
[2017-07-30] MEDS ORDERED: ARTIFICAL TEARS 0.4 ML UNIT DOSE (REFRESH PLUS) OU PRN (13:15)
[2017-07-30] MEDS ORDERED: RT-ALBUTEROL/IPRATROPIUM 3 ML (DUONEB) VIAL INH PRN (13:15)
[2017-07-30] MEDS ORDERED: ARTIFICIAL TEARS OINT (LACRI-LUBE) 3.5 GM TUBE OU PRN (13:15)
[2017-07-30] MEDS: LORazepam INJ 2 MG/ML (ATIVAN) VIAL IVP PRN (20:13)
[2017-07-30] MEDS: GLYCOPYRROLATE 0.2 MG/ML (ROBINUL) 2 ML VIAL IV PRN (23:02)
[2017-07-30] MEDS: SALIVA STIMULANT MOUTH SPRAY (BIOTENE) 1.5 OZ MM PRN (23:07)
[2017-07-31] MEDS: LORazepam INJ 2 MG/ML (ATIVAN) VIAL IVP PRN ×2 (04:36→12:44)
--- NOTE | 2017-07-31 08:14 | Progress Note (SOAP) ---
Subjective Time Seen by Provider: 08:10 Subjective/Events-last exam patient is comfort care. Patient is nonresponsive. Patient had large left sided ischemic stroke. Non-ST elevated myocardial infarction Bilateral pneumonia Objective Exam Vital Signs Date Time Temp Pulse Resp B/P (MAP) Pulse Ox O2 Delivery O2 Flow Rate FiO2 07/30/17 21:15 96 Nasal Cannula 2.00 07/30/17 16:24 Nasal Cannula 3.00 07/30/17 10:55 98.1 95 16 98 07/30/17 09:16 100.9 07/30/17 08:13 Nasal Cannula 2.00 Capillary Refill : Less Than 3 Seconds General Appearance: Other (nonresponsive) Cardiovascular: Regular Rate, Rhythm Assessment/Plan Assessment/Plan Assess & Plan/Chief Complaint Comfort Care. Large left-sided ischemic stroke. Non-ST elevated [place]. Bilateral pneumonia Patient nonresponsive. Family in room Clinical Quality Measures DVT/VTE Risk/Contraindication: Risk Factor Score Per Nursin RFS Level Per Nursing on Admit: 4+=Very High FREDY GATES DO Jul 31, 2017 08:14
[2017-07-31] MEDS: morphine INJ 4 MG/ML 1 ML (VIAL/SYRINGE) IVP PRN ×5 (08:29→21:51)
--- NOTE | 2017-07-31 09:08 | Speech Therapy Progress Note ---
Therapy Progress Note Speech Pathology consult received and chart reviewed. The patient is currently on "comfort care" protocol. Due to current status, the patient is not appropriate for a swallowing evaluation. Speech pathology will sign off at this time. If the patient's status changes, please reconsult speech pathology ( discussed above with patient's RN). MIKAYLA DEL REAL Jul 31, 2017 09:08
--- NOTE | 2017-07-31 12:41 | Occ Therapy Progress Note ---
Therapy Progress Note Order received for OT eval and treat. Chart review completed. Pt admitted with CVA and is unresponsive per chart. Discussed plan of care with RN who states pt is on comfort care and not appropriate for therapy at this time. Occupational therapy will sign off at this time. Please reconsult if status changes. PIYUSH DELCID OT Jul 31, 2017 12:41
[2017-07-31] MEDS: SALIVA STIMULANT MOUTH SPRAY (BIOTENE) 1.5 OZ MM PRN (15:56)
[2017-08-01] MEDS: morphine INJ 4 MG/ML 1 ML (VIAL/SYRINGE) IVP PRN ×4 (01:17→16:14)
[2017-08-01] MEDS: SALIVA STIMULANT MOUTH SPRAY (BIOTENE) 1.5 OZ MM PRN (04:47)
--- NOTE | 2017-08-01 07:58 | Progress Note (SOAP) ---
Subjective Time Seen by Provider: 07:52 Subjective/Events-last exam patient nonresponsive. Patient comfort care. Left-sided stroke. NSTEMI. pNEUMONIA Objective Exam Vital Signs Date Time Temp Pulse Resp B/P (MAP) Pulse Ox O2 Delivery O2 Flow Rate FiO2 07/31/17 21:00 Room Air 07/31/17 08:45 96 Nasal Cannula 2.00 Capillary Refill : Less Than 3 Seconds General Appearance: Other (nonresponsive) Results Lab Microbiology 07/30/17 Blood Culture - Preliminary, Resulted No growth Assessment/Plan Assessment/Plan Assess & Plan/Chief Complaint Comfort Care. Large left-sided ischemic stroke. Non-ST elevated [place]. Bilateral pneumonia Patient nonresponsive. Family in room. . 08/01. Patient comfort care. Large left-sided ischemic stroke. Non-ST elevated [place]. Bilateral pneumonia. Spoke to family in room Clinical Quality Measures DVT/VTE Risk/Contraindication: Risk Factor Score Per Nursin RFS Level Per Nursing on Admit: 4+=Very High FREDY GATES DO Aug 01, 2017 07:58
--- NOTE | 2017-08-02 08:20 | Progress Note (SOAP) ---
Subjective Time Seen by Provider: 08:15 Subjective/Events-last exam patient worse today. Left sided stroke. Non-ST elevated [place]. Pneumonia. Patient comfort care. Spoke to family this morning. Objective Exam Vital Signs Date Time Temp Pulse Resp B/P (MAP) Pulse Ox O2 Delivery O2 Flow Rate FiO2 08/01/17 20:40 Room Air 08/01/17 09:00 Room Air Capillary Refill : Less Than 3 Seconds General Appearance: Other (patient is more difficulty with breathing) Results Lab Microbiology 07/30/17 Blood Culture - Preliminary, Resulted No growth Assessment/Plan Assessment/Plan Assess & Plan/Chief Complaint Comfort Care. Large left-sided ischemic stroke. Non-ST elevated [place]. Bilateral pneumonia Patient nonresponsive. Family in room. . 08/01. Patient comfort care. Large left-sided ischemic stroke. Non-ST elevated [place]. Bilateral pneumonia. Spoke to family in room. . 08/02/17. Patient comfort care. Patient worse. Bilateral pneumonia. Large left-sided ischemic stroke. Non-ST elevated [place] Clinical Quality Measures DVT/VTE Risk/Contraindication: Risk Factor Score Per Nursin RFS Level Per Nursing on Admit: 4+=Very High FREDY GATES DO Aug 02, 2017 08:20
[2017-08-02] MEDS: morphine INJ 4 MG/ML 1 ML (VIAL/SYRINGE) IVP PRN ×4 (08:42→22:46)
[2017-08-02] MEDS: LORazepam INJ 2 MG/ML (ATIVAN) VIAL IVP PRN ×3 (10:49→22:17)
[2017-08-02] MEDS: GLYCOPYRROLATE 0.2 MG/ML (ROBINUL) 2 ML VIAL IV PRN ×2 (15:46→22:17)
[2017-08-02] MEDS ORDERED: SCOPOLAMINE 1.5 MG (TRANSDERM-SCOP) PATCH TOP SCH (23:45)
[2017-08-03] MEDS: LORazepam INJ 2 MG/ML (ATIVAN) VIAL IVP PRN ×3 (00:40→08:25)
[2017-08-03] MEDS: GLYCOPYRROLATE 0.2 MG/ML (ROBINUL) 2 ML VIAL IV PRN ×2 (03:43→08:31)
[2017-08-03] MEDS: morphine INJ 4 MG/ML 1 ML (VIAL/SYRINGE) IVP PRN ×2 (03:43→07:56)
--- NOTE | 2017-08-03 07:29 | Progress Note (SOAP) ---
Subjective Time Seen by Provider: 07:25 Subjective/Events-last exam patient comfort care. Patient resting comfortably. Left sided stroke. Non-ST elevated [place]. Pneumonia. Patient weaker Objective Exam Vital Signs Date Time Temp Pulse Resp B/P (MAP) Pulse Ox O2 Delivery O2 Flow Rate FiO2 08/02/17 20:00 Room Air 08/02/17 08:00 Room Air Capillary Refill : Less Than 3 Seconds General Appearance: Other (patient weaker) Results Lab Microbiology 07/30/17 Blood Culture - Preliminary, Resulted No growth Assessment/Plan Assessment/Plan Assess & Plan/Chief Complaint Comfort Care. Large left-sided ischemic stroke. Non-ST elevated [place]. Bilateral pneumonia Patient nonresponsive. Family in room. . 08/01. Patient comfort care. Large left-sided ischemic stroke. Non-ST elevated [place]. Bilateral pneumonia. Spoke to family in room. . 08/02/17. Patient comfort care. Patient worse. Bilateral pneumonia. Large left-sided ischemic stroke. Non-ST elevated [place]. . 08/03/17. Patient comfort care. Patient worse. Large sided left ischemic stroke. Bilateral pneumonia. Non-ST elevated [place]. Spoke to family Clinical Quality Measures DVT/VTE Risk/Contraindication: Risk Factor Score Per Nursin RFS Level Per Nursing on Admit: 4+=Very High FREDY GATES DO Aug 03, 2017 07:29
--- NOTE | 2017-08-06 07:28 | Discharge Summary ---
Diagnosis/Chief Complaint Date of Admission Jul 30, 2017 at 09:46 Date of Discharge Aug 03, 2017 at 09:52 Admission Diagnosis Admission Diagnosis 1. Large left sided ischemic stroke in distribution of MCA with non-STEMI and bilateral pneumonia--prognosis is poor so family has decided on comfort care Discharge Diagnosis cerebral infarct. Large left-sided ischemic stroke in distribution of MCA. DO NOT RESUSCITATE. Palliative care. Non-ST elevated [place]. Bilateral pneumonia. Essential hypertension. History of falling. Presence of coronary angioplasty implant Parkinson disease Discharge Summary Discharge Physical Examination Allergies: Coded Allergies: No Known Drug Allergies (Verified , 07/01/08) Vitals & I&Os Vital Signs Date Time Temp Pulse Resp B/P (MAP) Pulse Ox O2 Delivery O2 Flow Rate FiO2 08/03/17 08:00 68 Room Air 07/31/17 08:45 2.00 Hospital Course family aware of the poor prognosis. Family wanting comfort care. Patient Labs (last 24 hrs) Laboratory Tests 07/30/17 07:35: White Blood Count 10.6, Red Blood Count 3.84L, Hemoglobin 10.5#L, Hematocrit 34L , Mean Corpuscular Volume 88, Mean Corpuscular Hemoglobin 27, Mean Corpuscular Hemoglobin Concent 31L, Red Cell Distribution Width 19.3H, Platelet Count 316, Mean Platelet Volume 10.5H, Neutrophils (%) (Auto) 91H, Lymphocytes (%) (Auto) 5L, Monocytes (%) (Auto) 4, Eosinophils (%) (Auto) 0, Basophils (%) (Auto) 0, Neutrophils # (Auto) 9.7H, Lymphocytes # (Auto) 0.5L, Monocytes # (Auto) 0.4, Eosinophils # (Auto) 0.0, Basophils # (Auto) 0.0, Neutrophils % (Manual) 95, Lymphocytes % (Manual) 4, Monocytes % (Manual) 1, Hypochromasia MODERATE, Prothrombin Time 14.9H, INR Comment 1.2, Activated Partial Thromboplast Time 29 , D-Dimer 3.66H, Sodium Level 148H, Potassium Level 4.1, Chloride Level 113H, Carbon Dioxide Level 20L, Anion Gap 15H, Blood Urea Nitrogen 38H, Creatinine 1.45H, Estimat Glomerular Filtration Rate 35, BUN/Creatinine Ratio 26, Glucose Level 141H, Lactic Acid Level 2.00, Calcium Level 9.3, Total Bilirubin 2.7H, Aspartate Amino Transf (AST/SGOT) 48H, Alanine Aminotransferase (ALT/SGPT) 22, Alkaline Phosphatase 92, Troponin I 2.67*H, Total Protein 7.0, Albumin 3.7, Thyroid Stimulating Hormone (TSH) 1.60 07/30/17 07:45: Urine Color YELLOW, Urine Clarity CLEAR, Urine pH 5, Urine Specific [place] 1.020, Urine Protein 3+H, Urine Glucose (UA) NEGATIVE, Urine Ketones 1+H, Urine Nitrite NEGATIVE, Urine Bilirubin NEGATIVE, Urine Urobilinogen NORMAL, Urine Leukocyte Esterase NEGATIVE, Urine RBC (Auto) 5+H, Urine RBC NONE, Urine WBC NONE, Urine Squamous Epithelial Cells 0-2, Urine Crystals NONE, Urine Amorphous Sediment MOD JOSE MARTIN URATESH, Urine Bacteria TRACE, Urine Casts NONE, Urine Mucus NEGATIVE, Urine Culture Indicated NO Microbiology 07/30/17 Blood Culture - Final, Complete No growth Pending Labs Microbiology Date/Time Source Procedure Growth Status 07/30/17 08:44 Peripheral Rt Hand Blood Culture - Final No growth Complete 07/30/17 07:35 Peripheral Lt Ac Blood Culture - Final No growth Complete Laboratory Tests 07/30/17 07:35: White Blood Count 10.6, Red Blood Count 3.84, Hemoglobin 10.5, Hematocrit 34, Mean Corpuscular Volume 88, Mean Corpuscular Hemoglobin 27, Mean Corpuscular Hemoglobin Concent 31, Red Cell Distribution Width 19.3, Platelet Count 316, Mean Platelet Volume 10.5, Neutrophils (%) (Auto) 91, Lymphocytes (%) (Auto) 5, Monocytes (%) (Auto) 4, Eosinophils (%) (Auto) 0, Basophils (%) (Auto) 0, Neutrophils # (Auto) 9.7, Lymphocytes # (Auto) 0.5, Monocytes # (Auto) 0.4, Eosinophils # (Auto) 0.0, Basophils # (Auto) 0.0, Neutrophils % (Manual) 95, Lymphocytes % (Manual) 4, Monocytes % (Manual) 1, Hypochromasia MODERATE, Prothrombin Time 14.9, INR Comment 1.2, Activated Partial Thromboplast Time 29, D-Dimer 3.66, Sodium Level 148, Potassium Level 4.1, Chloride Level 113, Carbon Dioxide Level 20, Anion Gap 15, Blood Urea Nitrogen 38, Creatinine 1.45, Estimat Glomerular Filtration Rate 35, BUN/Creatinine Ratio 26, Glucose Level 141, Lactic Acid Level 2.00, Calcium Level 9.3, Total Bilirubin 2.7, Aspartate Amino Transf (AST/SGOT) 48, Alanine Aminotransferase (ALT/SGPT) 22, Alkaline Phosphatase 92, Troponin I 2.67, Total Protein 7.0, Albumin 3.7, Thyroid Stimulating Hormone (TSH) 1.60 07/30/17 07:45: Urine Color YELLOW, Urine Clarity CLEAR, Urine pH 5, Urine Specific [place] 1.020, Urine Protein 3+, Urine Glucose (UA) NEGATIVE, Urine Ketones 1+, Urine Nitrite NEGATIVE, Urine Bilirubin NEGATIVE, Urine Urobilinogen NORMAL, Urine Leukocyte Esterase NEGATIVE, Urine RBC (Auto) 5+, Urine RBC NONE, Urine WBC NONE , Urine Squamous Epithelial Cells 0-2, Urine Crystals NONE, Urine Amorphous Sediment MOD JOSE MARTIN URATES, Urine Bacteria TRACE, Urine Casts NONE, Urine Mucus NEGATIVE, Urine Culture Indicated NO Discharge Home Medications: Active Scripts Active Hydrocodon -Acetaminophen 5-325 (Hydrocodone/Acetaminophen) 1 Each Tablet 1 Each PO Q6H PRN Protonix (Pantoprazole Sodium) 40 Mg Tablet.dr 1 Tab PO DAILY Reported Carbidopa-Levodopa 25-100 Tab (Carbidopa/Levodopa) 1 Each Tablet Escitalopram Oxalate 10 Mg Tablet K-Dur (Potassium Chloride) 10 Meq Tab.prt.sr 10 Meq PO DAILY Furosemide 40 Mg Tablet 40 Mg PO DAILY Lopressor Hct 100-50 Tablet (HCTZ/Metoprolol Tartrate) 1 Each Tablet 1 Each PO DAILY Primidone 50 Mg Tablet 50 Mg PO HS Amiodarone Hcl 400 Mg Tablet 400 Mg PO DAILY Atorvastatin Calcium 40 Mg Tablet 40 Mg PO DAILY Nitrostat (Nitroglycerin) 0.4 Mg Subl 0.4 Mg SL PRN Instructions to patient/family Please see electronic discharge instructions given to patient. Clinical Quality Measures DVT/VTE Risk/Contraindication: Risk Factor Score Per Nursin RFS Level Per Nursing on Admit: 4+=Very High FREDY GATES DO Aug 06, 2017 07:28
== END 2017-08-03 09:52 | disposition expired | DRG 64 ==
LOC: EDUNIT# 07:28 → ER 07:29 → 4TH 09:46 → EEVIPCON 09:46 → 4TH 09:47
PROVIDERS: ADMIT Family Medicine; ATTEND Family Medicine
DX: I63.512 Cerebral infarction due to unspecified occlusion or stenosis of left middle cerebral artery (principal); I21.4 Non-ST elevation (NSTEMI) myocardial infarction; J18.9 Pneumonia, unspecified organism; Z51.5 Encounter for palliative care; Z66 Do not resuscitate; R06.9 Unspecified abnormalities of breathing; I10 Essential (primary) hypertension; I25.2 Old myocardial infarction; G20 Parkinson's disease; Z95.5 Presence of coronary angioplasty implant and graft; Z95.1 Presence of aortocoronary bypass graft; Z86.73 Personal history of transient ischemic attack (TIA), and cerebral infarction without residual deficits; Z91.81 History of falling
CPT/HCPCS: 36415; 70450; 71010; 80053; 81000; 83605; 84443; 84484; 85007; 85027; 85379; 85610; 85730; 87040; 93005; 93041; 94640; 96374